=== PATIENT | male | born 1975 | race Caucasian/White ===

== ENCOUNTER → 2016-06-16 | Outpatient (CLI) | payer OTHER ==
[~2016-06-16] MED LIST: ALPR-411 PO; DICL75TA2 PO; HYDR-389 PO; LISI-725 PO; VENL150C56 PO; VENL1CAP92 PO
--- NOTE | 2016-06-16 15:16 | DIAGNOSTIC IMAGING REPORT ---
MRI LUMBAR SPINE W/O CONTRAST CLINICAL HISTORY: Back pain with right leg radiculopathy. TECHNIQUE: Sagittal and axial T1, T2 and STIR images were obtained. COMPARISON STUDY: No previous studies for comparison. OBSERVATIONS: The vertebral bodies and posterior elements appear intact. There is no abnormal bony signal present to suggest a marrow replacement process. L1-2: No disc protrusions or extrusions. No evidence of spinal canal or neural foraminal compromise. L2-3: No disc protrusions or extrusions. No evidence of spinal canal or neural foraminal compromise. L3-4: No disc protrusions or extrusions. No evidence of spinal canal or neural foraminal compromise. L4-5: There is a large right-sided disc extrusion measuring 20 x 20 x 10 mm. The disc material likely impinges on the right S1 nerve root. L5-S1: There is an annular fissure and small right posterior lateral disc protrusion. There is minimal deformity of the thecal sac. There is no significant foraminal narrowing. The conus medullaris and cauda equina appear normal. IMPRESSION: Large right-sided extruded disc herniation at the L4-5 level with secondary deformity of the thecal sac and probable impingement of the right S1 nerve root Electronically signed by: Perfecto Guzmán M.D. 06/16/2016 3:15 PM Dictated Date/Time: 06/16/2016 3:11 PM
== END | disposition home or self-care (01) ==
LOC: C.MRIBC 14:35
PROVIDERS: ATTEND Orthopaedic Surgery
DX: M51.26 Other intervertebral disc displacement, lumbar region (principal); M51.86 Other intervertebral disc disorders, lumbar region; M79.606 Pain in leg, unspecified

== ENCOUNTER → 2016-06-29 | Outpatient (CLI) | payer OTHER ==
[2016-06-29 14:42] LABS: BASO % 0.4 %; BASO ABS # 0.02 K/uL (0-0.2); COMPLETE YES; EOS % 1.4 %; HEMATOCRIT 49.9 % (42-52); IG% 0.4 %; LYMPH % 38.3 %; LYMPH ABS # 2.12 K/uL (1.2-3.4); MEAN CORPUSCULAR HEMOGLOBIN 29.8 pg (25-34); MEAN CORPUSCULAR HGB CONC 33.9 g/dl (32-36); MEAN PLATELET VOLUME 9.7 fL (7.4-10.4); MONO % 7.2 %; NEUT % 52.3 %; PLATELET COUNT 268 K/uL (130-400); RED BLOOD COUNT 5.67 M/uL (4.7-6.1); WHITE BLOOD COUNT 5.54 K/uL (4.8-10.8)
== END | disposition home or self-care (01) ==
LOC: C.LABBC 10:34
PROVIDERS: ATTEND Orthopaedic Surgery Orthopaedic Surgery of the Spine
DX: Z01.818 Encounter for other preprocedural examination (principal)

== ENCOUNTER → 2016-07-03 | Outpatient (CLI) | payer OTHER ==
[2016-07-03 19:36] LABS: BLOOD UREA NITROGEN 17 mg/dl (7-18); CALCIUM 8.8 mg/dl (8.5-10.1); CARBON DIOXIDE 26 mmol/L (21-32); CHLORIDE 106 mmol/L (98-107); GLUCOSE 89 mg/dl (70-99); POTASSIUM 4.1 mmol/L (3.5-5.1); SODIUM 140 mmol/L (136-145)
== END | disposition home or self-care (01) ==
LOC: C.LAB 18:27
PROVIDERS: ATTEND Physician Assistant Medical
DX: Z01.812 Encounter for preprocedural laboratory examination (principal)

== ENCOUNTER 2016-07-17 11:06 | Observation (INO) | payer OTHER ==
[2016-07-03 09:49] VITALS: BMI 29.0
--- NOTE | 2016-07-14 15:19 | HISTORY & PHYSICAL EXAMINATION ---
DATE OF ADMISSION: 07/17/2016 SUBJECTIVE CHIEF COMPLAINT: He presents with low back pain with right leg pain, numbness, weakness. HISTORY OF PRESENT ILLNESS: Eric is a very pleasant 41-year-old male who complains of the above symptoms. 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 He says he has had low back pain, some right leg difficulty with numbness and tingling and some weakness for many years. It is gradually getting worse over the past couple months to the point where he feels unstable on that leg. He was previously followed by Dr. Lund recently who had x-rays and subsequent MRI for this symptomatology. He had him on a short course of prednisone which helped a little bit but the pain did return after he was done. He still continues to have weakness and numbness and tingling. He did have an MRI which showed a fairly large disc herniation at L4-5. PAST MEDICAL HISTORY: Includes depression, hypertension. PAST SURGICAL HISTORY: Had lump removed from a fall on his hip. ALLERGIES: HE HAS NO ALLERGIES TO MEDICATIONS. CURRENT MEDICATIONS: List includes lisinopril. FAMILY MEDICAL HISTORY: Negative for heart disease, stroke, diabetes, blood clots, DVTs and cancer. SOCIAL HISTORY: He is . Drinks 3 more drinks a day. No tobacco use. Very active lifestyle. REVIEW OF SYSTEMS: Negative for any chest pain, shortness of breath. RESPIRATORY: Negative for any asthma or wheezing. MUSCULOSKELETAL: Negative for any joint pain, stiffness, weakness. PHYSICAL EXAMINATION: CONSTITUTIONAL: Alert and oriented x3. VITAL SIGNS: 6 foot 2, 225 pounds. CARDIOVASCULAR: Brisk capillary refill in distal extremities. Normal S1, S2. No S3 noted upon auscultation. RESPIRATORY: Equal and bilateral breath sounds. No rales, rhonchi or wheezing. GASTROINTESTINAL: Abdomen is nontender and soft. No organomegaly was palpated. MUSCULOSKELETAL EXAMINATION: He ambulated without difficulty and without the use of a cane or walker. He does have tension signs with straight leg raises on the left contralaterally. He has ipsilateral tension pain with straight leg raises on the right side. He has appropriate reflexes in patellar and Achilles. He is a little bit weaker with quadriceps as well as plantarflexion on the right side compared to left. No x-rays reviewed today; however MRI does show significant herniated disc at the L4-5 level. It does drop inferiorly. It does mainly affect the exiting L5 nerve root to the right side. We did review plain films, does show degenerative changes at L4-5. No gross instability was noted. ASSESSMENT DIAGNOSIS: Massive disc herniation at the L4-5 level impinging on the exiting 5th nerve root. PLAN: At this time, we offered him surgery for discectomy at L4-5 level. We discussed the surgery, recover time and risks as well. We did provide him with a back brace for postop as well as postop pain medication as well. We will assess him intraoperatively. We may possibly use Gl[employer] technology and instrument him at L4-5 if we deem that he is unstable after the discectomy. That decision will be made during surgery. We expect that he will be in on [facility] for 1 day, possibly 2. We will follow him up 10-14 days postop for suture removal and evaluation. He understands all the risks and benefits involved. CHERRI
[~2016-07-17] VITALS: Ht 188 cm; Wt 102.3 kg
[2016-07-17] VITALS (8 sets, daily range): BP systolic 118–150; BP diastolic 72–86; PULSE 78–89; TEMP 36.1–36.9; O2SAT 95–99; Ht 188 cm; Wt 102.3 kg
[~2016-07-17 11:06] MED LIST changes: +LACTATED RINGER'S 1000ML 1,000 ML IV SCH; +NSS 1000ML IV SCH; -VENL150C56 PO; -VENL1CAP92 PO
[2016-07-17] MEDS ORDERED: VENL150C56 PO (11:30)
[2016-07-17] MEDS ORDERED: VENL1CAP92 PO (11:47)
[2016-07-17] MEDS ORDERED: MIDAZOLAM HCL 1 MG/ML 2ML VIAL ONE (12:08)
[2016-07-17] MEDS ORDERED: ONDANSETRON INJ 2 MG/ML 2 ML VIAL ONE (12:08)
[2016-07-17] MEDS ORDERED: DEXAMETHASONE SOD INJ 4 MG/ML VIAL ONE ×3 (12:08→14:43)
[2016-07-17] MEDS ORDERED: GLYCOPYRROLATE INJ 0.2 MG/ML VIAL ONE ×2 (12:08→14:37)
[2016-07-17] MEDS ORDERED: NEOSTIGMINE METHYLSULFATE 5 MG/5 ML SYR ONE ×2 (12:08→14:37)
[2016-07-17] MEDS ORDERED: PROPOFOL IV EMULSION 10 MG/ML 20 ML VIAL IV ONE (12:08)
[2016-07-17] MEDS ORDERED: LIDOCAINE HCL 2% 2 ML VIAL (20MG/ML) ONE (12:08)
[2016-07-17] MEDS ORDERED: ROCURONIUM BROMIDE 10 MG/ML 5 ML VIAL ONE ×2 (12:08→14:37)
[2016-07-17] MEDS ORDERED: FENTANYL CITRATE INJ 50 MCG/1 ML 2 ML VIAL ONE ×2 (12:08)
[2016-07-17] MEDS: CEFAZOLIN 2000 MG/60 ML D5W 60 ML IV SCH ×2 (12:49→13:49)
[2016-07-17] MEDS ORDERED: GELATIN SPONGE SZ 100 ONE (13:28)
[2016-07-17] MEDS ORDERED: BACITRACIN 50000 UNIT VIAL ONE (13:29)
[2016-07-17] MEDS ORDERED: BUPIVACAINE/EPINEPHRINE 0.5% MPF 1:200,000 30 ML VIAL ONE (13:29)
[2016-07-17] MEDS ORDERED: THROMBIN FOR SOLN 20000 UNIT KIT ONE (13:29)
[2016-07-17] MEDS ORDERED: VANCOMYCIN HCL 1000MG/20ML VIAL ONE (13:29)
--- NOTE | 2016-07-17 13:43 | History & Physical Bridge Note ---
H&P Re-Evaluation Bridge Note: I have examined the patient, reviewed the History & Physical and in the interval since the performance of the History & Physical I have noted the following changes of clinical significance: No changes noted
[2016-07-17] MEDS ORDERED: MoRPHine SULFATE 2 MG/ML CARP ONE (14:25)
[2016-07-17] MEDS ORDERED: EpHEDrine SULFATE 50MG/5ML SYR ONE (14:29)
[2016-07-17] MEDS ORDERED: HYDROmorphone INJ 2 MG/ML SYR/VIAL ONE (14:34)
[2016-07-17] MEDS ORDERED: NALOXONE HCL 0.4 MG/1 ML VIAL/CARP IV PRN (15:30)
[2016-07-17] MEDS ORDERED: ONDANSETRON INJ 2 MG/ML 2 ML VIAL IV PRN ×2 (15:30→15:45)
[2016-07-17] MEDS ORDERED: EpHEDrine SULFATE INJ 50 MG/ML AMP IV PRN (15:30)
[2016-07-17] MEDS ORDERED: ATROPINE SULFATE 0.1 MG/ML 5ML SYR IV PRN (15:30)
[2016-07-17] MEDS ORDERED: FLUMAZENIL 0.1 MG/1 ML 10 ML VIAL IV PRN (15:30)
[2016-07-17] MEDS ORDERED: PROMETHAZINE HCL INJ 12.5 MG in SODIUM CHLORIDE 0.9% 50ML 50 ML IV PRN ×2 (15:30→15:45)
[2016-07-17] MEDS ORDERED: LABETALOL HCL IV 5 MG/ML 20ML IV PRN (15:30)
[2016-07-17] MEDS ORDERED: HYDROmorphone INJ 1 MG/ML SYR IV PRN ×2 (15:30→15:45)
--- NOTE | 2016-07-17 15:38 | [facility] Post Operative Brief Note ---
Immediate Operative Summary Operative Date Jul 17, 2016. Pre-Operative Diagnosis Massive Disc Herniation L4-L5 Post-Operative Diagnosis Massive Disc Herniation L4-L5 Procedure(s) Performed L4-[address] Andino Ad Clerk Surgeon(s) FELICIA Pierce Estimated Blood Loss 80ml Findings disc herniation Specimens none per surgeon Complication(s) None Disposition Recovery Room / PACU
[2016-07-17] MEDS ORDERED: HYDROmorphone INJ 2 MG/ML SYR/VIAL IV PRN (15:45)
[2016-07-17] MEDS ORDERED: ALPRAZOLAM 0.5 MG TAB PO PRN (15:45)
[2016-07-17] MEDS ORDERED: ACETAMINOPHEN 325 MG TAB PO PRN (15:45)
[2016-07-17] MEDS ORDERED: OXYCODONE/ACETAMINOPHEN 5-325 TAB PO PRN ×2 (15:45)
[2016-07-17] MEDS ORDERED: TRAMADOL HCL 50 MG TAB PO PRN (15:45)
[2016-07-17] MEDS ORDERED: LORAZEPAM 1 MG TAB PO PRN (15:45)
[2016-07-17] MEDS ORDERED: METOCLOPRAMIDE HCL INJ 5 MG/ML 2 ML VIAL IV PRN (15:45)
[2016-07-17] MEDS ORDERED: LORAZEPAM INJ 1 MG in SYRINGE 0 ML IV PRN (15:45)
[2016-07-17] MEDS ORDERED: MAGNESIUM HYDROXIDE SUSP 30 ML UDC PO PRN (15:45)
[2016-07-17] MEDS ORDERED: IV FLUIDS COMPLETED PRN (16:30)
--- NOTE | 2016-07-17 16:42 | Anesthesiology Progress Note ---
Anesthesia Post Op Note Date & Time Jul 17, 2016 at 16:42 Vital Signs Pain Intensity: 0 Vital Signs Past 12 Hours Date Time Temp Pulse Resp B/P Pulse Ox O2 Delivery O2 Flow Rate FiO2 07/17/16 16:15 36.2 83 16 136/72 98 Nasal Cannula 4 07/17/16 16:05 36.2 95 16 162/80 98 Nasal Cannula 4 07/17/16 15:55 90 16 151/81 100 Mask 10 07/17/16 15:45 96 16 151/84 100 Mask 10 07/17/16 15:35 36.6 101 16 158/84 100 Mask 10 07/17/16 11:37 36.9 83 16 146/86 99 Room Air 07/17/16 11:33 36.9 83 16 146/86 99 Room Air Notes Mental Status: alert / awake / arousable, participated in evaluation Pt Amnestic to Procedure: Yes Nausea / Vomiting: adequately controlled Pain: adequately controlled Airway Patency, RR, SpO2: stable & adequate BP & HR: stable & adequate Hydration State: stable & adequate Anesthetic Complications: no major complications apparent
[2016-07-17] MEDS: SODIUM CHLORIDE 0.9% 1000ML 1,000 ML IV SCH (17:29)
[2016-07-17] MEDS: KETOROLAC TROMETHAMINE 30 MG/ML VIAL IV. SCH ×2 (17:30→23:20)
--- NOTE | 2016-07-17 19:19 | OPERATIVE REPORT ---
DATE OF OPERATION: 07/17/2016 PREOPERATIVE DIAGNOSIS: Disc herniation L4-5. POSTOPERATIVE DIAGNOSIS: Same. PROCEDURE: Discectomy L4-5, partial laminotomy L4-5, lumbar spine L4-5. SURGEON: Dr. Andino. WIRE RIGGER: Juan Cruz PA-C. COMPLICATIONS: Zero. BLOOD LOSS: 50 mL. ANESTHETIC: General. DESCRIPTION OF PROCEDURE: The patient was taken to the operating room, a general intubated anesthetic provided to the patient, placed prone, shaved, scrubbed, prepped and draped sterile. We made a skin incision roughly from L4 to the sacrum dissecting the soft tissue. We brought in x-ray. We could come right down in the L4-5 interspace. He had real large disc herniation that had dissected in the inferior direction several centimeters. We did upbiting laminotomy of L4 and down-biting laminotomy of L5 on the right hand side only, foraminotomy, partial facetectomy. We preserved all structural integrity. We then were final able to get out lateral to the nerve root itself, retract this in a medial direction in piecemeal fashion and take out a large disc herniation actually 3 fairly significant fragments. We actually made incision in the L4-5 disc. There was not much yield here. We then irrigated thoroughly, closed over some vancomycin powder over Hemovac drain over some Gelfoam. We closed fascia to fascia with #1 Vicryl suture, 2-0 in the subcuticular layer, 3-0 nylon on the skin, sterile dressing applied. The patient returned to PACU in improved stable condition. No apparent complications. Sponge and needle count correct at the close. I attest to the content of the Intraoperative Record and any orders documented therein. Any exceptio ns are noted below.
[2016-07-17] MEDS: DEXAMETHASONE INJ 10 MG in SYRINGE 0 ML IV SCH (22:06)
[2016-07-17] MEDS: CEFAZOLIN IV 1,000 MG in DEXTROSE 5% 50ML 50 ML IV SCH (22:06)
[2016-07-18 03:50] VITALS: BP 118/65; PULSE 87; TEMP 36.8; O2SAT 96
[2016-07-18] MEDS: SODIUM CHLORIDE 0.9% 1000ML 1,000 ML IV SCH (04:04)
[2016-07-18] MEDS: DEXAMETHASONE INJ 10 MG in SYRINGE 0 ML IV SCH ×2 (05:47→14:29)
[2016-07-18] MEDS: CEFAZOLIN IV 1,000 MG in DEXTROSE 5% 50ML 50 ML IV SCH ×2 (05:47→14:28)
[2016-07-18] MEDS: KETOROLAC TROMETHAMINE 30 MG/ML VIAL IV. SCH ×2 (05:48→12:25)
[2016-07-18] MEDS ORDERED: BISACODYL 10 MG SUPP PR PRN (06:00)
[2016-07-18] MEDS ORDERED: BISACODYL 5 MG TABEC PO PRN (06:00)
[2016-07-18] MEDS ORDERED: NURSING VERBAL MED ORDER ONE (06:30)
[2016-07-18 07:20] VITALS: BP 127/75; PULSE 80; TEMP 36.6; O2SAT 96
[2016-07-18] MEDS ORDERED: VENLAFAXINE HCL XR 37.5 MG CAPXR PO SCH (09:00)
[2016-07-18] MEDS ORDERED: LISINOPRIL 20 MG TAB PO SCH (09:00)
[2016-07-18] MEDS ORDERED: POLYETHYLENE (MIRALAX) 17 GM PACK PO SCH (09:00)
--- NOTE | 2016-07-18 09:32 | Discharge Instructions ---
Discharge Instructions Date of Service Jul 18, 2016. Admission Reason for Admission: L4-L5 Disc Herniation Discharge Discharge Diagnosis / Problem: disc herniation Discharge Goals Goal(s): Improve function Activity Recommendations Activity Limitations: as noted below Lifting Limitations: until after follow-up appointment Exercise/Sports Limitations: until after follow-up appointment May Resume Sexual Activity: after follow-up appointment Shower/Bathe: keep incision dry . Current Hospital Diet Patient's current hospital diet: Regular Diet Discharge Diet Recommended Diet: Regular Diet Procedures Procedures Performed: L4-5 Laminectomy Pending Studies Studies pending at discharge: no Medical Emergencies . Who to Call and When: Medical Emergencies: If at any time you feel your situation is an emergency, please call 911 immediately. . Non-Emergent Contact Non-Emergency issues call your: Surgeon Call Non-Emergent contact if: your pain is unusual for you, your pain is concerning you, you have any medication questions . "Provider Documentation" section prepared by Chuck Andino. VTE Core Measure Inpt VTE Proph given/why not?: Treatment not indicated
--- NOTE | 2016-07-18 09:34 | Discharge Instructions ---
Discharge Instructions Date of Service Jul 18, 2016. Admission Reason for Admission: L4-L5 Disc Herniation Discharge Discharge Diagnosis / Problem: disc herniation Discharge Goals Goal(s): Improve function Activity Recommendations Activity Limitations: as noted below Lifting Limitations: until after follow-up appointment Exercise/Sports Limitations: until after follow-up appointment May Resume Sexual Activity: after follow-up appointment Shower/Bathe: keep incision dry . Instructions / Follow-Up Instructions / Follow-Up MEDICATIONS: Please take your prescriptions as instructed at your pre-op appointment. SPECIAL CARE: The following information is intended to answer some of the common questions and concerns regarding your surgery. Each patient is an individual and receives individual counselling throughout the course of treatment, from diagnosis to surgery all the way through recovery. What follows is not an exhaustive list, but should be a useful guide to some of the common questions and concerns patients have regarding their surgeries. These are not provided to keep you from calling us; rather, they give you something accurate and concrete to reference as you recover from your procedure. If you need us, we are available to you. As always, if you are not sure about something, call us at [phone]. MEDICAL EMERGENCIES: For these conditions, call 911 or go to your local hospital-based Emergency Department - not [facility] or equivalent. * Paralysis * Severe chest pain or difficulty breathing * Swelling or redness of either leg Spine procedures can be rather complex and though complications are rare, they do occur. In such cases, effective advice regarding emergency situations cannot always be addressed over the telephone. You may be referred to the emergency department for more effective management of your problem. Activity Limitations: It is important to give your body time to heal, so please limit your activities : * In general, don't do anything that moves your spine too much. You should avoid contact sports, twisting or heavy lifting while you recover. * 5-10 pounds is all you should attempt to lift. * You should not plan on driving for approximately 3 weeks and you should avoid traveling more than 30-45 minutes at a time. Longer trips should be broken down with walking breaks spaced appropriately. * Physical therapy is not usually required. * Walking and good posture practices will help you recover and regain your function. * Avoid straining or sudden changes in position. * In general, the goal is to take it easy and recover. Don't cause any new problems. Just relax. Showers: * Do not take a bath, use a Jacuzzi or hot tub or otherwise submerge your incision. * It is usually safe to take a shower 4-5 days after your surgery. * Your incision does not require any special creams or ointments. * Simply clean it with soap and water, dry and re-dress with a clean bandage afterwards. Incision: * Keep incision clean, dry and protected until your first follow-up appointment. * Some amount of drainage and redness is normal. Any drainage should be fairly clear and not have a foul odor. * If you feel anything is wrong or you have excessive drainage, please call us. * Your stitches and ronna will be removed 10-14 days after your surgery. At the time of your first post-op visit. * Neck surgeries are typically closed with a suture underneath the skin. The steri-strips over the incision should be maintained until we see you in the office. Bracing: * You may be provided with a back or neck brace to encourage good posture and prevent injury. It will remind you not to do too much as you heal and will alert others to the fact that you have had a surgery. * Back braces may be removed for showers and when you are resting at home. They must be worn when you are walking around for any period of time or for travel. * For neck surgery, you will likely be provided with two cervical collars. The soft collar (Bassett or foam rubber) is worn most commonly throughout the day and while sleeping. The plastic collar (provided at the hospital) is for showering/bathing. * Except while eating, collars should remain in place. More specifically, bracing is provided for a purpose and should be worn. * Please obtain your brace or collars prior to your operation and bring them to the hospital with you on the day of surgery. * You should also bring your collars to your post-op appointment with Dr. Andino. You should always take good care of your body and practice healthy habits, especially following surgery. You should: * Follow your doctor's treatment plan * Sit and stand properly with good posture (ears over shoulders, shoulders over hips) Don't slouch * Learn to lift correctly * Exercise regularly (low-impact aerobic exercise is especially good, but check with your doctor first) * Generally, be up and walking for 5-10 minutes at a time at least 3-4 times per day from the day you get home * Increasing walking to tolerance until you can walk for 20-30 minutes at a time * Attain and maintain a healthy body weight * Eat healthy foods ( a well-balanced, low-fat diet rich in fruits and vegetables) and get enough calcium * Avoid excessive use of alcohol When to call our office - If you notice any of the following: * Increased pain not relieve by pain medicine * Fevers greater then 100 degrees F, chills or flu symptoms * Increased redness around incision * Drainage from the incision that is not clear * Any foul smelling drainage * Swelling or fluid collection beneath the skin Miscellaneous: * In the hospital, you may be given a walker or cane for support while walking. These are temporary needs and are intended to prevent injuries due to falls. You may discontinue them when you feel strong and steady enough on your feet. * Sleep in a comfortable position. We find that many patients find a lounge chair or recliner with several pillows to be beneficial in the early post-operative period. * The support stockings should be used for 7-10 days and may be discontinued when you are back to walking more and conducting usual household activities. No problem is insignificant. We are here to help you and get you well. Contact us at [phone]. Definitions: Foraminotomy: If part of the disc or a bone spur (osteophyte) is pressing on a nerve as it leaves the vertebra (through an exit called the foramen), a foraminotomy may be done. Otomy means "to make an opening." A foraminotomy is making the opening of the foramen larger, so the nerve can exit without being compressed. Laminotomy: Similar to the foraminotomy, a laminotomy makes a larger opening, this time in your bony plate protecting your spinal canal and spinal cord (the lamina). The lamina may be pressing on your nerve, so the surgeon may make more room for the nerves using a laminotomy. Laminectomy: Sometimes, a laminotomy is not sufficient. The surgeon may need to remove all or part of the lamina. This procedure is called a laminectomy. This can often be done at many levels without any harmful effects. Current Hospital Diet Patient's current hospital diet: Regular Diet Discharge Diet Recommended Diet: Regular Diet Procedures Procedures Performed: L4-5 Laminectomy Pending Studies Studies pending at discharge: no Medical Emergencies . Who to Call and When: Medical Emergencies: If at any time you feel your situation is an emergency, please call 911 immediately. . Non-Emergent Contact Non-Emergency issues call your: Surgeon Call Non-Emergent contact if: your pain is not controlled . "Provider Documentation" section prepared by Chuck Andino. VTE Core Measure Inpt VTE Proph given/why not?: Treatment not indicated
[2016-07-18 09:39] VITALS: BP 144/78; PULSE 88; O2SAT 95
--- NOTE | 2016-07-18 10:53 | DISCHARGE SUMMARY ---
SUBJECTIVE: Minimal complaints of pain. Alert, oriented. Vital signs stable, 118/65 blood pressure, 36.6 temperature. ASSESSMENT: Status post lumbar spine discectomy, improved stable, short run. DISPOSITION: Dressing changed today. Discharge home later today. Instructions and precautions provided. Prescriptions on his chart. Back brace provided and we will see him back in the office in 10 days.
[2016-07-18 12:29] VITALS: BP 121/71; PULSE 80; TEMP 36.6; O2SAT 95
[2016-07-18 15:06] VITALS: BP 121/71; PULSE 80; TEMP 36.6; O2SAT 95
[2016-07-18 15:56] VITALS: BP 107/64; PULSE 85; TEMP 36.5; O2SAT 96
--- NOTE | 2016-07-19 07:54 | DIAGNOSTIC IMAGING REPORT ---
INTRAOPERATIVE RADIOGRAPH CLINICAL HISTORY: L4-L5 discectomy. Fluoroscopy time: 1 second. FINDINGS: A single spot fluoroscopic view of the lower lumbar spine is presented. A surgical probe projects posteriorly at the level of L5. IMPRESSION: Intraoperative image from L4 -L5 discectomy as above. Electronically signed by: Gorge Martines M.D. 07/19/2016 7:52 AM Dictated Date/Time: 07/19/2016 7:52 AM
== END 2016-07-18 16:15 | disposition home or self-care (01) ==
LOC: ENRESERVTM → ENRESERVDT → C.ACU 11:06 → C.3E 15:39
PROVIDERS: ADMIT Orthopaedic Surgery Orthopaedic Surgery of the Spine; ATTEND Orthopaedic Surgery Orthopaedic Surgery of the Spine
DX: M51.26 Other intervertebral disc displacement, lumbar region (principal); I10 Essential (primary) hypertension

== ENCOUNTER 2022-02-21 14:29 | Inpatient (IN) ==
[2022-02-21] MEDS ORDERED: AMIODARONE HCL INJ 50 MG/ML 3 ML VIAL IV ONE (14:32)
[2022-02-21] MEDS ORDERED: AMIODARONE 150MG / 100ML D5W IV ONE (14:35)
[2022-02-21] MEDS ORDERED: AMIODARONE / D5W 150 MG/100 ML BAG IV STA (14:41)
[2022-02-21] MEDS ORDERED: 0.2 MICRON FILTER SET 1 EACH IV ONE (14:45)
--- NOTE | 2022-02-21 14:47 | Emergency Department Note ---
Impression & Plan PSVT (paroxysmal supraventricular tachycardia), Tachyarrhythmia, Chest pain ED Provider Note NAME: SELVIN VINCENT AGE: 47 SEX: M : 1975 ARRIVES VIA: Walk-In INFORMANT: Patient, EMS ED PROVIDER(S): Dominik Sun DO CHIEF COMPLAINT: Palpitations and chest pain HPI: The patient is a 47-year-old male who presented to the emergency department by ambulance for an evaluation of chest pain. The patient started having chest pain prior to arrival. The patient noticed discomfort around noon. He called 911. He arrived via ALS. He was noted to have a dysrhythmia with significant tachycardia. This was felt to be narrow complex tachycardia and the patient was initially treated with adenosine. The patient did not respond to this modality and he arrived to the emergency department in wide-complex tachycardia. I disc ussed the patient's initial EKG with him. This was felt to be ventricular tachycardia however there was some signs on his previous EKG that could be consistent with aberrant conduction. For this reason his case was discussed with cardiology. The patient denies having any shortness of breath. He denies having any swelling in the legs. He denies having any recent traveling. He said no recent trauma. He states he had an EKG in the past for what he describes as anxiety. He states that this feels differently. ROS: See above HPI for pertinent positives & negatives. A total of 10 systems reviewed and were otherwise negative. PAST MEDICAL HISTORY: See Below PAST SURGICAL HISTORY: See Below FAMILY HISTORY: See Below SOCIAL HISTORY: See Below HOME MEDICATIONS: See Below ALLERGIES: See Below VITALS: See Below PHYSICAL EXAMINATION: GENERAL: Patient is awake alert in no acute distress patient is resting comfortably and showing no signs of anxiety EYES: The conjunctivae are clear. The pupils are round and reactive. EARS, NOSE, MOUTH AND THROAT: The nose is without any evidence of any deformity. Mucous membranes are moist. Tongue is midline. NECK: The neck is nontender and supple. RESPIRATORY: Normal respiratory effort is noted there is no evidence of wheezing rhonchi or rales CARDIOVASCULAR: Tachycardic and regular heart sounds were noted auscultation. There is no definite murmur. GASTROINTESTINAL: The abdomen is soft. Abdomen is nontender. MUSCULOSKELETAL/EXTREMITIES: There is no evidence of gross deformity full range of motion is noted in the hips and shoulders. SKIN: There is no obvious evidence of any rash. There are no petechiae, pallor o r cyanosis noted. NEUROLOGIC: Patient is awake alert and oriented x3. MEDICAL DECISION MAKING: The patient is a 47-year-old male who presented to the emergency department by ambulance. The patient started having chest pain and palpitations. He was found to have a wide-complex tachycardia prior to arrival. The QRS duration was wide enough to be consistent with a wide-complex tachycardia however the initial appearance of the EKG be consistent with SVT or another dysrhythmia. The patient was treated with IV fluids as well as IV adenosine by the prehospital personnel. There was no change in his rhythm. He arrived at the emergency department and received further IV hydration. I attempted a modified Valsalva maneuver. I reviewed the patient's previous EKG which did appear to have a slightly shortened IN interval. There was some concern that this could be related to the patient's current tacky dysrhythmia. This reason I consulted cardiology. They reviewed the patient's EKG as well as his clinical condition. They presented to the bedside. We reviewed the patient's condition with him. He was treated with further antidysrhythmic's including beta-blockers. Ultimately it was felt safest to offer the patient cardioversion. The patient was cardioverted in the emergency department emergently. He tolerated this very well. The patient was cardioverted to sinus rhythm. I discussed the patient's condition with the on-call [facility] hospitalist as well. Triage Nursing notes reviewed. Prior medical records reviewed Vital Signs: reviewed and remarkable for no significant abnormalities Differential diagnosis: Cardiac ischemia, aortic dissection, pulmonary embolism, pneumothorax, pneumonia, pericarditis, myocarditis, esophageal rupture, GERD, cholecystitis, pancreatitis, musculoskeletal, as well as other pathologies. ER treatment provided: See below Diagnostics interpreted by me: ECG: EKG was obtained in the emergency department. My interpretation is wide- complex tachycardia at 248 bpm. No PVCs were noted. Nonspecific ST segment abnormalities were noted. This was compared to a tracing from February 28, 2010. Sinus rhythm was noted on the previous tracing and has been replaced with a wide-complex tachycardia. A second EKG was obtained in the emergency department. This appears to be consistent with wide-complex tachycardia at 232 bpm. No PVCs were noted. This represents no change from the earlier tracing. A prehospital EKG was evaluated. My interpretation is wide-complex tachycardia at 252 bpm. Wandering baseline was noted. Nonspecific ST segment depressions were noted in the inferior and lateral leads. Third EKG was obtained in the emergency department. My interpretation is sinus rhythm at 80 bpm. Fusion beats were noted. Nonspecific ST segment abnormalities were noted. This was compared to a tracing from February 28, 2010. No significant changes were noted. Cardiac Monitoring: An order was placed for continuous cardiac monitoring. The monitor shows a rate of 70 bpm with sinus rhythm. Laboratory studies: As stated above and show below. Imaging studies: See below Consultation(s): I discussed this case with Dr. Sanchez who is on for [facility] cardiology. I discussed this case with Dr. Baum who is on-call for the [facility] hospitalist group. ED COURSE: Procedures: Procedural Sedation Indication wide-complex tachycardia. Total time: 15minutes. Written consent was obtained after the risks and benefits were explained to the patient, including, but not limited to aspiration, allergic reaction, breathing difficulties, cardiac complications, vomiting, pain, event recall, bleeding, a nd/or infection. Pre-sedation examination and paperwork completed. The patient was on 100% oxygen via NRB prior to the procedure. Continous end tidal CO2 monitoring, pulse oximetry, and cardiac monitoring were utilized. Suction, airway equipment, medications, respiratory equipment, and appropriate personnel were prepared prior to the initiation of the procedure. A time out was taken. Sedation was achieved utilizing 14mg of etomidate. After I observed the patient had reached the appropriate level of sedation the main procedure was performed without complication. Sedation was discontinued and the monitoring continued. The patient recovered quickly from the effects of the medication without complication or adverse event. Critical Care: I have personally spent greater than 55 minutes of critical care time in the direct management of this patient. This includes bedside care, interpretation of diagnostic studies, and testing, discussion with consultants, patient, and family members, and other required patient management activities. This 55 minutes is in excess of all separately billable procedures. Past Med/Surg History Medical History Anxiety Hypertension Lumbar disc herniation with radiculopathy Surgical History Status post lumbar spine surgery for decompression of spinal cord Social History Smoking Status: Never smoker Hx Alcohol Use: No Hx Substance Use: No Communication Ability: Effective Route Sales Representative Required: No Beliefs That Will Affect Care: None Current Living Situation: Family Feels Safe at Home: Yes Assistive Devices: None Allergies Allergies Allergy/AdvReac Type Severity Reaction Status Date / Time No Known Drug Allergies Allergy Unknown . Verified 02/21/22 15:51 Home Meds Home Medications Medication Instructions Recorded Confirmed cholecalciferol (vitamin D3) 50 50 mcg PO DAILY 02/21/22 02/21/22 mcg (2,000 unit) tablet (Vitamin D3) lisinopril 20 mg tablet 20 mg PO DAILY 02/21/22 02/21/22 venlafaxine 25 mg tablet 6.25 mg PO DAILY 02/21/22 02/21/22 Results & Data (ED) Vital Signs Vital Signs - 24 hr 02/21/22 14:32 02/21/22 14:47 02/21/22 14:55 Temperature 36.8 C Temperature Source Oral Pulse Rate 242 H Pulse Rate [Left] 238 H 230 H Pulse Rate from SpO2 Sensor Pulse Rhythm Regular Pulse Rhythm [Left] Regular Pulse Strength Normal Pulse Strength [Left] Normal Respiratory Rate 17 17 19 Respiratory Effort / Characteristics Non-Labored Non-Labored Respiratory Depth Normal Normal Normal Respiratory Pattern Regular Regular Regular Blood Pressure 116/78 Blood Pressure [Left Arm] 120/90 130/86 Blood Pressure Mean 90 Blood Pressure Mean [Left Arm] 100 100 Blood Pressure Position Lying Blood Pressure Position [Left Arm] Lying Lying Pulse Oximetry 98 98 98 Oxygen Delivery Method Room Air Room Air Room Air Oxygen Flow Rate Sepsis Recent Fever Within 48 Hours No Sepsis New/Unexplained Change in Mental Status N/A Sepsis Action Taken by Nursing No Action Required End-Tidal CO2 02/21/22 14:56 02/21/22 14:34 02/21/22 14:40 Temperature Temperature Source Pulse Rate 230 H 259 H 243 H Pulse Rate [Left] Pulse Rate from SpO2 Sensor Pulse Rhythm Pulse Rhythm [Left] Pulse Strength Pulse Strength [Left] Respiratory Rate 17 27 H Respiratory Effort / Characteristics Respiratory Depth Respiratory Pattern Blood Pressure 130/86 Blood Pressure [Left Arm] Blood Pressure Mean Blood Pressure Mean [Left Arm] Blood Pressure Position Blood Pressure Position [Left Arm] Pulse Oximetry Oxygen Delivery Method Oxygen Flow Rate Sepsis Recent Fever Within 48 Hours Sepsis New/Unexplained Change in Mental Status Sepsis Action Taken by Nursing End-Tidal CO2 02/21/22 14:50 02/21/22 15:00 02/21/22 15:10 Temperature Temperature Source Pulse Rate 237 H 218 H 219 H Pulse Rate [Left] Pulse Rate from SpO2 Sensor Pulse Rhythm Pulse Rhythm [Left] Pulse Strength Pulse Strength [Left] Respiratory Rate 12 13 12 Respiratory Effort / Characteristics Respiratory Depth Respiratory Pattern Blood Pressure 130/86 Blood Pressure [Left Arm] Blood Pressure Mean 100 Blood Pressure Mean [Left Arm] Blood Pressure Position Blood Pressure Position [Left Arm] Pulse Oximetry 98 96 94 Oxygen Delivery Method Room Air Room Air Room Air Oxygen Flow Rate Sepsis Recent Fever Within 48 Hours Sepsis New/Unexplained Change in Mental Status Sepsis Action Taken by Nursing End-Tidal CO2 20 02/21/22 15:12 02/21/22 15:13 02/21/22 15:15 Temperature Temperature Source Pulse Rate 82 77 83 Pulse Rate [Left] Pulse Rate from SpO2 Sensor 81 77 82 Pulse Rhythm Pulse Rhythm [Left] Pulse Strength Pulse Strength [Left] Respiratory Rate 16 17 20 Respiratory Effort / Characteristics Respiratory Depth Respiratory Pattern Blood Pressure 120/77 106/77 130/81 Blood Pressure [Left Arm] Blood Pressure Mean 91 86 97 Blood Pressure Mean [Left Arm] Blood Pressure Position Blood Pressure Position [Left Arm] Pulse Oximetry 92 94 97 Oxygen Delivery Method Nasal Cannula Nasal Cannula Nasal Cannula Oxygen Flow Rate 2 2 2 Sepsis Recent Fever Within 48 Hours Sepsis New/Unexplained Change in Mental Status Sepsis Action Taken by Nursing End-Tidal CO2 16 19 32 02/21/22 15:20 02/21/22 15:08 02/21/22 15:10 Temperature Temperature Source Pulse Rate 99 H 230 H 88 Pulse Rate [Left] Pulse Rate from SpO2 Sensor Pulse Rhythm Pulse Rhythm [Left] Pulse Strength Pulse Strength [Left] Respiratory Rate 17 17 Respiratory Effort / Characteristics Respiratory Depth Respiratory Pattern Blood Pressure 139/99 110/60 Blood Pressure [Left Arm] Blood Pressure Mean 112 76 Blood Pressure Mean [Left Arm] Blood Pressure Position Blood Pressure Position [Left Arm] Pulse Oximetry 100 100 Oxygen Delivery Method Room Air Nasal Cannula Oxygen Flow Rate 2 Sepsis Recent Fever Within 48 Hours Sepsis New/Unexplained Change in Mental Status Sepsis Action Taken by Nursing End-Tidal CO2 26 Home Medications Current Medication List: was personally reviewed by ma Laboratory Data Attestation: I reviewed the patient's lab results. Result diagrams: 02/22/22 05:51 02/22/22 05:51 Lab Results 02/21/22 02/21/22 02/21/22 Range/Units 14:31 14:31 14:31 WBC 9.40 (4.8-10.8) K/ul RBC 5.53 (4.63-6.08) M/uL Hgb 16.5 (14.0-18.0) g/dl Hct 48.4 (40.1-51.0) % MCV 87.5 (80.0-100.0) fL MCH 29.8 (25.0-34.0) pg MCHC 34.1 (32.0-36.0) g/dL RDW Std Deviation 38.8 (36.4-46.3) fL RDW Coeff of Zandra 12.1 (11.5-14.5) % Plt Count 304 (130-400) K/uL MPV 9.4 (9.4-12.4) fL Immature Gran % (Auto) 0.3 % Neut % (Auto) 74.4 % Lymph % (Auto) 20.2 % Shannon % (Auto) 4.7 % Eos % (Auto) 0.1 % Baso % (Auto) 0.3 % Neut # (Auto) 6.99 H (1.4-6.5) K/uL Lymph # (Auto) 1.90 (1.2-3.4) K/uL Shannon # (Auto) 0.44 (0.24-0.82) K/uL Eos # (Auto) 0.01 (0-0.50) K/uL Baso # (Auto) 0.03 (0-0.2) K/uL Immature Gran # (Auto) 0.03 H (0.00-0.02) K/uL PT 11.1 (9.0-12.0) Seconds INR 1.0 (0.9-1.1) APTT 28.8 (21.0-31.0) Seconds PTT Ratio 1.0 Sodium 139 (136-145) mmol/L Potassium 3.8 (3.5-5.1) mmol/L Chloride 104 (98-107) mmol/L Carbon Dioxide 25 (21-32) mmol/L Anion Gap 10 (3-11) BUN 12 (6-23) mg/dl Creatinine 1.31 (0.6-1.4) mg/dl Est Cr Clr Drug Dosing 92.0 ml/min Est GFR ( Amer) 75.1 ml/min Est GFR (Non-Af Amer) 64.8 ml/min BUN/Creatinine Ratio 9.2 L (10-20) Glucose 135 H (70-99(Fasting)) mg/dl Calcium 10.0 (8.5-10.1) mg/dl Total Bilirubin 1.8 H (0.2-1.0) mg/dl AST 26 (13-39) U/L ALT 61 H (7-52) U/L Alkaline Phosphatase 63 (34-104) U/L Troponin I High Sens 39.5 H (0-20) pg/ml Total Protein 7.3 (6.0-8.3) gm/dl Albumin 4.6 (3.4-5.0) gm/dl Globulin 2.7 (2.5-4.0) gm/dl Albumin/Globulin Ratio 1.7 (0.9-2) Lipase 13 (11-82) U/L Administered Medications Enoxaparin Sodium (Enoxaparin Inj 40 Mg/0.4 Ml Syr) 40 mg SQ Q24H MOHINI Stop: 03/24/22 08:59 Last Admin: 02/22/22 08:27 Dose: Not Given Documented By: WILLOW Lisinopril (Lisinopril 20 Mg Tab) 20 mg PO DAILY MOHINI Stop: 03/24/22 08:59 Last Admin: 02/22/22 08:28 Dose: 20 mg Documented By: WILLOW Miscellaneous (Order Awaiting Action [Venlafaxine 6.25mg]) 1 each N/A QS MOHINI Stop: 03/24/22 00:00 Last Admin: 02/22/22 08:27 Dose: Not Given Documented By: Admin: 02/22/22 07:39 Dose: Not Given Documented By: WILLOW Discontinued Medications Adenosine (Adenosine Iv Soln 3 Mg/Ml 2 Ml Vial) Confirm Administered Dose 12 mg IV .STK-MED ONE Stop: 02/21/22 14:51 Last Admin: 02/21/22 14:53 Dose: 12 mg Documented By: [place] Adenosine (Adenosine Iv Soln 3 Mg/Ml 2 Ml Vial) 12 mg IV ONE ONE Stop: 02/21/22 15:31 Last Admin: 02/21/22 15:35 Dose: Not Given Documented By: [place] Amiodarone HCl/Dextrose (Amiodarone 150mg / 100ml D5w) Confirm Administered Dose 150 mg IV .STK-MED ONE Stop: 02/21/22 14:36 Last Admin: 02/21/22 15:00 Dose: Not Given Documented By: [place] Etomidate (Etomidate 2 Mg/Ml 20 Ml Vial) Confirm Administered Dose 40 mg IV .STK-MED ONE Stop: 02/21/22 14:56 Last Admin: 02/21/22 15:36 Dose: Not Given Documented By: [place] Etomidate (Etomidate 2 Mg/Ml 20 Ml Vial) 14 mg IV ONE ONE Stop: 02/21/22 15:31 Last Admin: 02/21/22 15:35 Dose: 14 mg Documented By: [place] Fentanyl Citrate (Fentanyl Citrate 100 Mcg/2 Ml Vial) Confirm Administered Dose 100 mcg .ROUTE .STK-MED ONE Stop: 02/21/22 15:04 Last Admin: 02/21/22 15:34 Dose: Not Given Documented By: [place] Fentanyl Citrate (Fentanyl Citrate 100 Mcg/2 Ml Vial) 50 mcg IV ONE ONE Stop: 02/21/22 15:31 Last Admin: 02/21/22 15:09 Dose: 50 mcg Documented By: [place] Amiodarone HCl/Dextrose (Nexterone / D5w) 150 mg in 100 mls @ 600 mls/hr IV NOW STA Stop: 02/21/22 14:50 Last Admin: 02/21/22 15:00 Dose: Not Given Documented By: [place] Metoprolol Tartrate (Metoprolol Tartrate 1 Mg/Ml Vial) Confirm Administered Dose 5 mg IV .STK-MED ONE Stop: 02/21/22 14:56 Last Admin: 02/21/22 14:56 Dose: 5 mg Documented By: [place] Metoprolol Tartrate (Metoprolol Tartrate 1 Mg/Ml Vial) 5 mg IV ONE ONE Stop: 02/21/22 15:31 Last Admin: 02/21/22 15:37 Dose: Not Given Documented By: [place] Metoprolol Tartrate (Metoprolol Tartrate 25 Mg Tab) 25 mg PO NOW STA Stop: 02/21/22 16:06 Last Admin: 02/21/22 16:31 Dose: 25 mg Documented By: [place] Imaging Data Radiologist's Impression: Chest X-Ray 02/21/22 14:33 XR chest 1V portable CLINICAL HISTORY: Chest Pain TECHNIQUE: Single frontal radiograph of the chest was obtained. Comparison: None available at the time of this dictation. FINDINGS: No lines and tubes are seen. The cardiomediastinal silhouette is normal. The lungs are clear. No evidence of pleural effusion or pneumothorax. IMPRESSION: No acute chest disease. ACT 112: Negative or not required by law. Electronically signed by: Rubén Thomas M.D. 02/21/2022 3:00 PM Discharge Plan Visit Data Chief Complaint: Cardiac Assessment ED Provider: Dominik Sun Discharge Problem: PSVT (paroxysmal supraventricular tachycardia), Tachyarrhythmia, Chest pain Patient Disposition: Admitted As Inpatient Discharge Instructions Interventions: ED Discharge Assessment Last Done: 02/21/22 16:28 : Chest pain Qualifiers: Chest pain type: unspecified Qualified Code(s): R07.9 - Chest pain, unspecified
[2022-02-21 14:50] LABS: Basophils # (auto) 0.03 K/uL (0-0.2); Basophils % (auto) 0.3 %; Eosinophils # (auto) 0.01 K/uL (0-0.50); Eosinophils % (auto) 0.1 %; Hematocrit (blood only) 48.4 % (40.1-51.0); Hemoglobin 16.5 g/dl (14.0-18.0); Immature Granulocytes # (auto) 0.03 K/uL (0.00-0.02); Immature Granulocytes % (auto) 0.3 %; Lymphocytes % (auto) 20.2 %; Mean Corpuscular Hemoglobin 29.8 pg (25.0-34.0); Mean Corpuscular Hgb Conc 34.1 g/dL (32.0-36.0); Mean Corpuscular Volume 87.5 fL (80.0-100.0); Mean Platelet Volume 9.4 fL (9.4-12.4); Monocytes # (auto) 0.44 K/uL (0.24-0.82); Monocytes % (auto) 4.7 %; Neutrophils # (auto) 6.99 K/uL (1.4-6.5); Neutrophils % (auto) 74.4 %; Platelet Count 304 K/uL (130-400); RDW Coefficient of Variation 12.1 % (11.5-14.5); RDW Standard Deviation 38.8 fL (36.4-46.3); Red Blood Count 5.53 M/uL (4.63-6.08)
[2022-02-21] MEDS ORDERED: ADENOSINE IV SOLN 3 MG/ML 2 ML VIAL IV ONE ×2 (14:50→15:30)
[2022-02-21] MEDS ORDERED: METOPROLOL TARTRATE 1 MG/ML VIAL IV ONE ×2 (14:55→15:30)
[2022-02-21] MEDS ORDERED: ETOMIDATE 2 MG/ML 20 ML VIAL IV ONE ×2 (14:55→15:30)
--- NOTE | 2022-02-21 15:01 | XRay Report ---
XR chest 1V portable CLINICAL HISTORY: Chest Pain TECHNIQUE: Single frontal radiograph of the chest was obtained. Comparison: None available at the time of this dictation. FINDINGS: No lines and tubes are seen. The cardiomediastinal silhouette is normal. The lungs are clear. No evid ence of pleural effusion or pneumothorax. IMPRESSION: No acute chest disease. ACT 112: Negative or not required by law. Electronically signed by: Rubén Thomas M.D. 02/21/2022 3:00 PM
[2022-02-21 15:02] LABS: Partial Thromboplastin Time 28.8 Seconds (21.0-31.0); Prothrombin Time 11.1 Seconds (9.0-12.0)
[2022-02-21] MEDS ORDERED: fentaNYL citrate 100 MCG/2 ML VIAL ONE (15:03)
--- NOTE | 2022-02-21 15:20 | History & Physical Report ---
Date of Service February 21, 2022 Assessment & Plan (1) Tachyarrhythmia: Plan: Eric Arroyo is a 47-year-old male with a past medical history of lumbar disc herniation and radiculopathy, hypertension, anxiety who presents with chest pain and palpitations and was found to have a heart rate greater than 200 on ER arrival Tachycardia EKG 02/21/2022: Rate 248, QRS 172, wide QRS tachycardia - Comparison EKG 02/2010: NSR with sinus arrhythmia, QTC 401. No ST segment changes, no T waves, no heart block ? VT versus 1:1 flutter No change after adenosine 12 mg push Received 50J sync electrical cardioversion in ER, etomidate 40 mg sedation/fentanyl 50 mcg with return to normal sinus rhythm rates 80s Recieved Toprol tartrate 5 mg IV x1 Cardiology consulted. Will make recommendations on medication/ablation referral based on review of rhythm. Defer oral MTP and Amio at this time. Admit to PCU, troponin 39.5 likely due to demand. Trended. Echo pending CXR: No acute findings Anxiety Continue home Effexor xr, pt wenaing and down to 1/4 a 25mg tablet Hypertension Continued on lisinopril 20 mg daily History of lumbar decompression With POC, patient does not have any indwelling hardware Chronic residual right foot demeanor sensation of soft touch otherwise no strength or sensory deficits No acute intervention at this time DVT prophylaxis: Lovenox, pending review of underlying rhythm if thought to be flutter anticoagulation based on final plan/ablation CODE STATUS: Full code Diet: Heart healthy Dispo: PCU (2) Anxiety: (3) Hypertension: History of Present Illness Primary Care Provider: Nik Taylor Eric Arroyo is a 47-year-old male with a past medical history of lumbar disc herniation and radiculopathy, hypertension, anxiety who presents with chest pain and palpitations and was found to have a heart rate greater than 200 on ER presentation. Michael is seen at the bedside after cardioversion. He reports he was in his usual state of health until around noon when he got a little bit lightheaded. Had to pee, went and urinated when the shortness of breath and lightheadedness went away but he developed a sensation of his heart racing. Reports he has had similar symptoms with anxiety in the past, although this has been relatively well controlled and is weaning down venlafaxine and has not needed Xanax in a l nicole time. Reports he did take 0.5 mg of an old Xanax in case this was more of an anxiety attack which did not help. He did not have any chest pain or chest pressure, just a sensation of his heart racing. He has not had any past history of cardiac arrhythmia, heart attack, heart problems. 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 He reports he was last shocked about a year ago with no recent shocks denies family history of of [place]/arrhythmia. Notes a history of hypothyroidism and hypertension in his father. Denies other family history. In the ER patient with heart rate of up to 250, cardiology consulted and present at time of admission. Initially patient did not respond to 12 mg of adenosine push. Subsequently sedated with etomidate, analgesia with fentanyl and received synchronized cardioversion with 50 J to a sinus rhythm. Medical History: Reviewed Medications: Reviewed. Is weaning venlafaxine, currently takes one quarter of a 25 mg tablet Surgical History: Reviewed Allergies: Reviewed Social History: No current or former tobacco use. Rare social alcohol use, no significant use prior to presentation. Code Status: Full code Allergies Allergy/AdvReac Type Severity Reaction Status Date / Time No Known Drug Allergies Allergy Unknown . Verified 02/21/22 15:51 Home Medications Medication Instructions Recorded Confirmed Type cholecalciferol (vitamin D3) 50 50 mcg PO DAILY 02/21/22 02/21/22 History mcg (2,000 unit) tablet (Vitamin D3) lisinopril 20 mg tablet 20 mg PO DAILY 02/21/22 02/21/22 History venlafaxine 25 mg tablet 6.25 mg PO DAILY 02/21/22 02/21/22 History Past Med/Surg History Medical History Anxiety Hypertension Lumbar disc herniation with radiculopathy Surgical History Status post lumbar spine surgery for decompression of spinal cord Social History Smoking Status: Never smoker Hx Substance Use: No Feels Safe at Home: Yes Review of Systems Review of Systems: All systems reviewed & are unremarkable except as noted in Subjective Physical Exam Physical Exam: At time of admit: General: A&Ox3. NAD. Cooperative. HEENT: Atraumatic, normocephalic. Pulm: CTAB A&P. -wheezes, -rales, -rhonchi. Symmetrical chest rise. No increased work of breathing. No respiratory distress. Cardiac: RRR, -mrg. Radial pulses intact and symmetrical. Abdominal: Nontender, nondistended, soft. BS present. Ext: warm, dry. Diminished sensation to soft touch in right foot. 5/5 ankle dorsiflexion/plantarflexion, hip flexion, cinder block maker strength. Sensation soft touch intact in hands bilaterally. Results & Data Results & Data ([facility]) Vital Signs (Past 12 Hours) Vital Signs Temp Pulse Pulse Resp BP BP Pulse Ox 02/21/22 14:56 230 H 130/86 02/21/22 14:55 230 H 19 130/86 98 02/21/22 14:47 238 H 17 120/90 98 02/21/22 14:32 36.8 C 242 H 17 116/78 98 O2 Del Method 02/21/22 14:56 02/21/22 14:55 Room Air 02/21/22 14:47 Room Air 02/21/22 14:32 Room Air PG Care Time/CCT Total # of Minutes Spent Total Time Spent with Patient: Total time spent is greater than 50% in coordination of care (as documented) at patient's floor/unit and/or counseling patient: Coding Level of Care Code 34880 Initial Inpt Care Lvl 2 Diagnoses Tachyarrhythmia R00.0 Anxiety F41.9 Hypertension I10
[2022-02-21] MEDS ORDERED: fentaNYL citrate 100 MCG/2 ML VIAL IV ONE (15:30)
--- NOTE | 2022-02-21 15:31 | Emergency Department Note ---
Pre Sedation Assessment Vital Signs Temp Pulse Pulse Resp BP BP Pulse Ox 02/21/22 15:10 88 02/21/22 15:08 230 H 17 110/60 100 02/21/22 15:20 99 H 17 139/99 100 02/21/22 15:15 83 20 130/81 97 02/21/22 15:13 77 17 106/77 94 02/21/22 15:12 82 16 120/77 92 02/21/22 15:10 219 H 12 94 02/21/22 15:00 218 H 13 96 02/21/22 14:50 237 H 12 130/86 98 02/21/22 14:40 243 H 27 H 02/21/22 14:34 259 H 17 02/21/22 14:56 230 H 130/86 02/21/22 14:55 230 H 19 130/86 98 02/21/22 14:47 238 H 17 120/90 98 02/21/22 14:32 36.8 C 242 H 17 116/78 98 O2 Del Method O2 Flow Rate 02/21/22 15:10 02/21/22 15:08 Nasal Cannula 2 02/21/22 15:20 Room Air 02/21/22 15:15 Nasal Cannula 2 02/21/22 15:13 Nasal Cannula 2 02/21/22 15:12 Nasal Cannula 2 02/21/22 15:10 Room Air 02/21/22 15:00 Room Air 02/21/22 14:50 Room Air 02/21/22 14:40 02/21/22 14:34 02/21/22 14:56 02/21/22 14:55 Room Air 02/21/22 14:47 Room Air 02/21/22 14:32 Room Air Cardiovascular + regular rate and + regular rhythm; no tachycardic + S1 normal and + S2 normal + capillary refill normal Respiratory normal respiratory effort, lungs clear to auscultation + respiratory effort normal; no respiratory distress, no retractions and no uses accessory muscles Pre-Sedation Airway Assessment Smoking Status: Never smoker Short, Thick Neck: No Thyromental Distance: > or= 3.5 Finger Breadths Oral Cavity: + WNL Mallampati Class: I ASA: ASA1 NPO Status Date of Last Intake of Fluids: 02/21/22 Time of Last Intake of Fluids: 12:00 Notes The planned sedation has been discussed with the patient. Informed Consent was obtained. I have identified the patient, determined the appropriateness of sedation and have assessed the patient immediately prior to the procedure. All medicine(s) and interventions are by my order. : Chest pain Qualifiers: Chest pain type: unspecified Qualified Code(s): R07.9 - Chest pain, unspecified
--- NOTE | 2022-02-21 15:31 | Emergency Department Note ---
Post Sedation Assessment Vital Signs Temp Pulse Pulse Resp BP BP Pulse Ox 02/21/22 15:10 88 02/21/22 15:08 230 H 17 110/60 100 02/21/22 15:20 99 H 17 139/99 100 02/21/22 15:15 83 20 130/81 97 02/21/22 15:13 77 17 106/77 94 02/21/22 15:12 82 16 120/77 92 02/21/22 15:10 219 H 12 94 02/21/22 15:00 218 H 13 96 02/21/22 14:50 237 H 12 130/86 98 02/21/22 14:40 243 H 27 H 02/21/22 14:34 259 H 17 02/21/22 14:56 230 H 130/86 02/21/22 14:55 230 H 19 130/86 98 02/21/22 14:47 238 H 17 120/90 98 02/21/22 14:32 36.8 C 242 H 17 116/78 98 O2 Del Method O2 Flow Rate 02/21/22 15:10 02/21/22 15:08 Nasal Cannula 2 02/21/22 15:20 Room Air 02/21/22 15:15 Nasal Cannula 2 02/21/22 15:13 Nasal Cannula 2 02/21/22 15:12 Nasal Cannula 2 02/21/22 15:10 Room Air 02/21/22 15:00 Room Air 02/21/22 14:50 Room Air 02/21/22 14:40 02/21/22 14:34 02/21/22 14:56 02/21/22 14:55 Room Air 02/21/22 14:47 Room Air 02/21/22 14:32 Room Air Recovery Score Activity: Moves 4 extremities Respiration: Deep Breath/Cough Circulation: +/-20% PreAnes Value Consciousness: Fully Awake Oxygen Saturation: > 92% On Room Air Discharge Sedation Level of Care: Phase I Post Sedation Plan On clinical assessment, the patient appears to have tolerated the sedation without complications. Patient is recovering as anticipated. Patient will continue to be monitored by nursing and may be discharged when sedation discharge criteria are met per below protocol. Upon Completions of procedure up to 15 minutes continue every 5 minute vital signs and the P.A.R. score; then discharge to a Phase I or Fast Track to Phase II per the following guidelines: * Discharge Patient to appropriate Phase II area if PAR is 8 or greater or return to pre- procedure baseline. The post - procedure orders will be as directed. * If PAR score is less than 8 or not return to pre-procedure baseline then amanda girard will follow Phase I monitoring till PAR is reached for Phase II. The Phase I may be done in procedure room or may call to secure a Phase I area. * If naloxone or flumazenil are used for reversal, hold in Phase I for continued monitoring from when last reversal dose was given for a minimum of 60 minutes or longer pending the nurse and/or physician discretion of patient condition before discharge to Phase II. Please call the Sedation Physician to re-evaluate and complete post-note for discharge to Phase II area. Do NOT discharge from procedure sedation or Phase 1 until post- sedation evaluation note is complete by procedure /sedation MD Sedation Discharge Instructions to be given to the patient at discharge to home. Sedation Data Sedation Times Sedation Start Date: 02/21/22 Sedation Start Time: 15:08 Sedation End Date: 02/21/22 Sedation End Time: 15:25 Total Sedation Time: 17 Procedure Times Procedure Start Time:: 15:08 Procedure End Time: 15:09 : Chest pain Qualifiers: Chest pain type: unspecified Qualified Code(s): R07.9 - Chest pain, unspecified
[2022-02-21 15:46] LABS: Albumin Globulin Ratio 1.7 (0.9-2); Albumin Level 4.6 gm/dl (3.4-5.0); BUN Creatinine Ratio 9.2 (10-20); Bilirubin,Total 1.8 mg/dl (0.2-1.0); Est GFR (African American) 75.1 ml/min; Est GFR (Non-African American) 64.8 ml/min; Globulin 2.7 gm/dl (2.5-4.0); Potassium 3.8 mmol/L (3.5-5.1); Total Protein 7.3 gm/dl (6.0-8.3); Troponin I High Sensitivity 39.5 pg/ml (0-20)
[2022-02-21] MEDS ORDERED: METOPROLOL TARTRATE 25 MG TAB PO STA (16:05)
--- NOTE | 2022-02-21 16:13 | Cardiology Consultation ---
Date of Consultation February 21, 2022 Assessment & Plan (1) PSVT (paroxysmal supraventricular tachycardia): Plan 47-year-old generally healthy man who had abrupt onset of paroxysmal supraventricular tachycardia with extreme rate (up to 240 bpm) but only modest symptoms (transient chest discomfort, lightheadedness, tachypalpitations) prompting electrical cardioversion in the ER. Although never previously documented, his prior episodes of palpitations could represent PSVT which broke before evaluation. Underlying mechanism is difficult to discern due to the extreme high heart rate, possibilities include AV ember reentrant tachycardia, atrial tachycardia, or atrial flutter. Recommend continuing beta-nicole, will use relatively low dose given his young age to minimize side effects. He did receive metoprolol 5 mg IV in the ER, metoprolol tartrate 25 mg PO ordered for now, would continue this twice daily. Will obtain electrophysiology consultation to consider electrophysiology study for potential ablation, particularly since a physically active person at a relatively young age may not tolerate substantial doses of beta-nicole. If he has any recurrent SVT overnight, would administer additional IV metoprolol and, if necessary, esmolol drip. Further recommendations after evaluation by Dr. Smallwood. History of Present Illness Reason for Consultation: PSVT Requesting Physician: Dominik Sun DO History of Present Illness 47-year-old man with no cardiac history noted abrupt onset of tachypalpitations with mild chest discomfort and lightheadedness around noon today and was brought to the ER by EMS where ECG showed narrow complex tachycardia at rates of up to 248 bpm. He notes that in the past he had been evaluated for tachypalpitations, but no dysrhythmias were documented and he was told that he had "anxiety". He has no baseline symptoms of dyspnea, angina, or routine palpitations. His prior episodes of palpitations were years ago. He was eating lunch today when he noted the onset of symptoms and called for EMS. In the field, as well as in the emergency department he was given adenosine up to 12 mg without discernible effect, carotid massage also was without discernible effect. He was normotensive and did not have chest pain or dyspnea when lying in the ER. However, due to his extreme tachycardia and nonresponse to adenosine, carotid massage, and 5 mg IV metoprolol, he was sedated and underwent electrical cardioversion to sinus rhythm. Subsequently, he was comfortable and had no somatic complaints. Allergies Allergy/AdvReac Type Severity Reaction Status Date / Time No Known Drug Allergies Allergy Unknown . Verified 02/21/22 15:51 Home Medications Medication Instructions Recorded Confirmed Type cholecalciferol (vitamin D3) 50 50 mcg PO DAILY 02/21/22 02/21/22 History mcg (2,000 unit) tablet (Vitamin D3) lisinopril 20 mg tablet 20 mg PO DAILY 02/21/22 02/21/22 History venlafaxine 25 mg tablet 6.25 mg PO DAILY 02/21/22 02/21/22 History Patient History Medical History Anxiety Hypertension Lumbar disc herniation with radiculopathy Surgical History Status post lumbar spine surgery for decompression of spinal cord Social History Smoking Status: Never smoker Hx Substance Use: No Feels Safe at Home: Yes Physical Exam Physical Exam: Adult white male initially borderline distressed but currently comfortable. Normotensive. Pulse 74 bpm and regular without ectopy. Skin: no ecchymoses or generalized lesions. HEENT: unremarkable. Neck: no JVD or carotid bruits. Lungs: clear. Cardiac: regular rhythm, normal S1 and S2 no murmur or gallop. Abdomen: benign. Extremities: no edema, pulses intact. Neurologic: normal affect and conversation, nonfocal. Results & Data ([facility]) Laboratory Results Normal electrolytes, BUN 12, creatinine 1.31. Diagnostic Findings Initial ECG showed narrow complex tachycardia 248 bpm with either incomplete right bundle branch block or R prime retrograde P wave in V1. A second ECG again showed narrow complex tachycardia at 232 bpm with incomplete right bundle branch block. A third ECG subsequent to cardioversion showed sinus rhythm and was completely unremarkable. Chest x-ray showed no acute disease. PG Care Time/CCT Total # of Minutes Spent Total Time Spent with Patient: Total time spent is greater than 50% in coordination of care (as documented) at patient's floor/unit and/or counseling patient: Coding Level of Care Code 29111 Inpt Consult Level 4 Diagnoses PSVT (paroxysmal supraventricular tachycardia) I47.1
[2022-02-21] MEDS ORDERED: ACETAMINOPHEN 325 MG TAB PO PRN (17:05)
--- NOTE | 2022-02-21 17:14 | Electrocardiogram Report ---
Test Reason : Blood Pressure : / mmHG Vent. Rate : 248 BPM Atrial Rate : 241 BPM P-R Int : 000 ms QRS Dur : 172 ms QT Int : 168 ms P-R-T Axes : 000 036 000 degrees QTc Int : 341 ms Supraventricular tachycardia Incomplete right bundle branch block Abnormal ECG When compared with ECG of 28-FEB-2010 09:07, Vent. rate has increased BY 158 BPM Incomplete right bundle branch block now present Confirmed by Danilo Sanchez ([id number]) on 02/21/2022 5:14:15 PM Referred By: Confirmed By:Danilo Sanchez
--- NOTE | 2022-02-21 17:17 | Electrocardiogram Report ---
Test Reason : Blood Pressure : / mmHG Vent. Rate : 232 BPM Atrial Rate : 234 BPM P-R Int : 000 ms QRS Dur : 190 ms QT Int : 186 ms P-R-T Axes : 000 066 000 degrees QTc Int : 365 ms Supraventricular tachycardia Incomplete right bundle branch block Abnormal ECG When compared with ECG of 21-FEB-2022 14:31, No significant change was found Confirmed by Danilo Sanchez ([id number]) on 02/21/2022 5:17:39 PM Referred By: Cathy Wade Confirmed By:Danilo Sanchez
--- NOTE | 2022-02-21 17:17 | Electrocardiogram Report ---
Test Reason : Blood Pressure : / mmHG Vent. Rate : 080 BPM Atrial Rate : 080 BPM P-R Int : 142 ms QRS Dur : 084 ms QT Int : 340 ms P-R-T Axes : 063 044 016 degrees QTc Int : 392 ms Sinus rhythm with Fusion complexes Incomplete right bundle branch block Left atrial enlargement Borderline ECG When compared with ECG of 21-FEB-2022 14:54, Sinus rhythm has replaced Supraventricular tachycardia Vent. rate has decreased BY 152 BPM Confirmed by Danilo Sanchez ([id number]) on 02/21/2022 5:16:52 PM Referred By: REFERRED SELF Confirmed By:Danilo Sanchez
[2022-02-22 06:03] LABS: Basophils # (auto) 0.02 K/uL (0-0.2); Basophils % (auto) 0.3 %; Eosinophils # (auto) 0.02 K/uL (0-0.50); Eosinophils % (auto) 0.3 %; Hemoglobin 16.1 g/dl (14.0-18.0); Immature Granulocytes # (auto) 0.03 K/uL (0.00-0.02); Immature Granulocytes % (auto) 0.4 %; Lymphocytes # (auto) 2.27 K/uL (1.2-3.4); Lymphocytes % (auto) 31.4 %; Mean Corpuscular Hemoglobin 30.1 pg (25.0-34.0); Mean Corpuscular Hgb Conc 34.3 g/dL (32.0-36.0); Mean Corpuscular Volume 87.9 fL (80.0-100.0); Mean Platelet Volume 9.3 fL (9.4-12.4); Monocytes # (auto) 0.48 K/uL (0.24-0.82); Monocytes % (auto) 6.6 %; Neutrophils # (auto) 4.42 K/uL (1.4-6.5); Platelet Count 238 K/uL (130-400); RDW Coefficient of Variation 12.4 % (11.5-14.5); RDW Standard Deviation 39.4 fL (36.4-46.3); Red Blood Count 5.35 M/uL (4.63-6.08); White Blood Count 7.24 K/ul (4.8-10.8)
[2022-02-22 06:43] LABS: Albumin Globulin Ratio 1.7 (0.9-2); Albumin Level 4.2 gm/dl (3.4-5.0); BUN Creatinine Ratio 13.6 (10-20); Bilirubin,Total 2.7 mg/dl (0.2-1.0); Calcium 9.3 mg/dl (8.5-10.1); Creatinine Clr Calc Pharmacy 100.1 ml/min; Est GFR (African American) 92.8 ml/min; Est GFR (Non-African American) 80.1 ml/min; Globulin 2.5 gm/dl (2.5-4.0); Potassium 4.2 mmol/L (3.5-5.1); Total Protein 6.7 gm/dl (6.0-8.3)
[2022-02-22] MEDS: lisinopril 20 MG TAB PO SCH (08:28)
[2022-02-22 08:47] LABS: Bilirubin Direct 0.3 mg/dl (0-0.2)
--- NOTE | 2022-02-22 08:47 | Cardioversion ---
Date of Service February 21, 2022 PG Electrical Cardioversion Rp Electrical Cardioversion Report Indication: SVT at 248 bpm Written consent was obtained after the risks and benefits were explained, including but not limited to pain, thermal burn, allergic reaction, aspiration, airway obstruction, laryngospasm, infection, hypotension, and cardiorespiratory arrest. At this time, the risks of the procedure are less than the risks of NOT performing the procedure. A time out was taken and the correct patient and procedure identified. The patient was on nasal vaannula and end tidal CO2 monitoring prior to the procedure. Suction, airway equipment, medications, respiratory equipment, ACLS cart, and appropriate personnel were prepared prior to the initiation of the procedure. Sedation was achieved utilizing fentanyl and etomidate. The biphasic defibrillator was set to 50 joules of energy and synched. After confirmation of sedation and "all clear" safety check the synchronized shock was delivered. This resulted in successful conversion of the dysrhythmia back into sinus rhythm. See nursing notes for dosages and times. There were no complications and the patient recovered uneventfully from the procedure. Coding Level of Care Code Cardioversion, elective Additional Codes Electrical Cardioversion Report ([id number]) Time Spent (min) 20
[2022-02-22] MEDS ORDERED: ENOXAPARIN INJ 40 MG/0.4 ML SYR SQ SCH (09:00)
--- NOTE | 2022-02-22 13:15 | Cardiology Progress Note ---
Date of Service February 22, 2022 Assessment & Plan (1) PSVT (paroxysmal supraventricular tachycardia): (2) Anxiety: (3) Elevated troponin: Plan 1. SVT: I believe he has some type of reentrant SVT, it is conceivable it is something different but it is not likely atrial flutter or of ventricular origin. I suspect it is due to an abnormal pathway and given the severity of his presentation I think he should have electrophysiologic study with thoughts of ablation if amenable. I discussed this with him and his family and they are agreeable. I will arrange this for tomorrow. 2. Anxiety: He describes a long history of anxiety which is sometimes, although not always, associated with rapid heart rates. Anxiety could make the arrhythmia worse due to elevated catecholamines, or perhaps the arrhythmia causes some degree of anxiety. I would look for causes and hopefully treatment of his arrhythmia separate from the anxiety. 3. Elevated troponin: His troponin trend is consistent with demand ischemia, with such rapid heart rate these troponins could be explained based on rate alone without the possibility of underlying coronary disease. Coronary disease is possible but I would not look for it. Admission and Anticipated Discharge Date Admission Date: February 21, 2022 Subjective He is feeling well today, I reviewed his history with multiple family members present. He does confirm episodes of fast heart rate going back 10 to 12 years and occurring intermittently and generally lasting less than a minute, sometimes but not always associated with anxiety which he suffers from. They were never recorded, his presenting symptoms yesterday were similar but much longer and less tolerable. No chest discomfort today, no shortness of breath. Physical Exam Physical Exam: Constitutional: Alert, cooperative and in no distress. Pulmonary: Clear to auscultation bilaterally. Cardiac: Regular rhythm with no murmur, gallop or rub. Abdomen: Soft, nontender with normal bowel sounds. Extremities: No edema. Skin: No rash, ecchymoses or petechiae. Results & Data ([facility]) Vital Signs (Past 12 Hours) Vital Signs Temp Pulse Pulse Resp BP Pulse Ox O2 Del Method 02/22/22 11:43 36.7 C 73 19 114/73 97 Room Air 02/22/22 09:15 68 02/22/22 07:37 36.7 C 69 20 108/62 96 Room Air 02/22/22 03:37 36.6 C 62 18 126/74 94 Room Air Laboratory Results Cardiac Enzymes 02/21/22 02/21/22 02/21/22 Range/Units 14:31 16:04 23:14 AST 26 (13-39) U/L Troponin I High Sens 39.5 H 103.4 H* D 238.2 H* D (0-20) pg/ml 02/22/22 02/22/22 Range/Units 05:51 05:51 AST 23 (13-39) U/L Troponin I High Sens 128.3 H* D (0-20) pg/ml Coagulation 02/21/22 Range/Units 14:31 PT 11.1 (9.0-12.0) Seconds APTT 28.8 (21.0-31.0) Seconds CBC 02/21/22 02/22/22 Range/Units 14:31 05:51 WBC 9.40 7.24 (4.8-10.8) K/ul RBC 5.53 5.35 (4.63-6.08) M/uL Hgb 16.5 16.1 (14.0-18.0) g/dl Hct 48.4 47.0 (40.1-51.0) % Plt Count 304 238 (130-400) K/uL Neut # (Auto) 6.99 H 4.42 (1.4-6.5) K/uL Lymph # (Auto) 1.90 2.27 (1.2-3.4) K/uL [place] # (Auto) 0.44 0.48 (0.24-0.82) K/uL Eos # (Auto) 0.01 0.02 (0-0.50) K/uL Baso # (Auto) 0.03 0.02 (0-0.2) K/uL Comprehensive Metabolic Panel 02/21/22 02/22/22 02/22/22 Range/Units 14:31 05:51 05:51 Sodium 139 138 (136-145) mmol/L Potassium 3.8 4.2 (3.5-5.1) mmol/L Chloride 104 104 (98-107) mmol/L Carbon Dioxide 25 27 (21-32) mmol/L BUN 12 15 (6-23) mg/dl Creatinine 1.31 1.10 (0.6-1.4) mg/dl Glucose 135 H 110 H (70-99(Fasting)) mg/dl Calcium 10.0 9.3 (8.5-10.1) mg/dl Direct Bilirubin 0.3 H (0-0.2) mg/dl AST 26 23 (13-39) U/L ALT 61 H 52 (7-52) U/L Alkaline Phosphatase 63 51 (34-104) U/L Total Protein 7.3 6.7 (6.0-8.3) gm/dl Albumin 4.6 4.2 (3.4-5.0) gm/dl Intake and Output 02/21/22 02/22/22 02/22/22 22:59 06:59 14:59 Intake Total 400 / 550 150 / 550 Output Total 1000 / 1000 Balance -600 / -450 150 / -450 Intake: Oral 400 / 550 150 / 550 Output: Urine 1000 / 1000 Other: # Unmeasured Voids 2 Weight 101.4 kg 101.4 kg Weight Measurement Method Built in Bedscale Built in [facility] Diagnostic Findings Telemetry: Sinus rhythm in the 60s, no arrhythmias since presentation. PG Care Time/CCT Total # of Minutes Spent Total Time Spent with Patient: Total time spent is greater than 50% in coordination of care (as documented) at patient's floor/unit and/or counseling patient: Coding Level of Care Code 71630 Subseq Hosp Care Lvl 3 Diagnoses PSVT (paroxysmal supraventricular tachycardia) I47.1 Anxiety F41.9 Elevated troponin R77.8
[2022-02-22] MEDS: METOPROLOL TARTRATE 25 MG TAB PO SCH ×2 (13:52→20:20)
--- NOTE | 2022-02-22 15:54 | Hospitalist Progress Note ---
Date of Service February 22, 2022 Assessment & Plan (1) PSVT (paroxysmal supraventricular tachycardia): Plan: Eric Arroyo is a 47-year-old male with a past medical history of lumbar disc herniation and radiculopathy, hypertension, anxiety who presents with chest pain and palpitations and was found to have a heart rate greater than 200 on ER arrival EKG 02/21/2022: Rate 248, QRS 172, wide QRS tachycardia - Comparison EKG 02/2010: NSR with sinus arrhythmia, QTC 401. No ST segment changes, no T waves, no heart block No change after adenosine 12 mg push Received 50J sync electrical cardioversion in ER, etomidate 40 mg sedation/fentanyl 50 mcg with return to normal sinus rhythm rates 80s - Currently in sinus rhythm Cardiology consulted, continue metoprolol tartrate 25 mg twice daily per recommendation Butt Trimmer believes it to be supraventricular tachycardia, electrophysiology study to be done tomorrow by Dr. Donaldson, n.p.o. after midnight Troponin up trended to 238 but is now downtrending and at 128 this morning Echo without any abnormality CXR: No acute findings (2) Anxiety: Plan: - Patient is currently weaned off of Effexor, will hold off giving him this medication for now - Discussed case with psych liaison, patient is amendable to doing cognitive behavioral therapy, will have them discuss options for outpatient (3) Hypertension: Plan: - Continue lisinopril 20 mg daily (4) Lumbar disc herniation with radiculopathy: Plan: With POC, patient does not have any indwelling hardware Chronic residual right foot demeanor sensation of soft touch otherwise no strength or sensory deficits No acute intervention at this time Diet: Heart healthy DVT prophylaxis: Lovenox Disposition: PCU CODE STATUS: Full code Admission and Anticipated Discharge Date Admission Date: February 21, 2022 Supervising Physician Co-Signing Physician Notes Resident Physician Supervision Note: I independently interviewed and examined the patient and verified the branch history and physical, reviewed labs and image studies and agree with resident findings and care plan. Subjective Patient seen at bedside this morning. No acute events reported overnight. Patient doing much better today and feeling much more like himself. Seems that he has had intervals of anxiety with rapid heart rate and chest discomfort for many years but would go away rather suddenly. Seems that his anxiety is a trigger for this general unwellness feeling. Also, his father seems to be a big trigger for his anxiety who is in town with him currently. Overall it sounds like this episode of abnormal heart rhythm may not be a new symptom but rather one that did not resolve required medical intervention. For his anxiety, patient was taking Effexor but has been slowly titrating off and is currently not taking anymore. He states that he did this as because he was having some brain fog and difficulty with focusing. Additionally when diving back into his history it seems that it was recommended that he was recommended to do a polysomnography test to evaluate for sleep apnea by his primary care provider. Patient never had this done. Reports that he does snore at least he has in the past. STOP-BANG score of 3 putting him at risk for sleep apnea. Otherwise patient overall feels well and has no other complaints at this time Review of Systems Review of Systems: All systems reviewed & are unremarkable except as noted in HPI & below Physical Exam Constitutional: WD/WN, vitals as above Eyes: + anicteric sclerae Neck: trachea midline, no thyromegaly Respiratory: normal respiratory effort, lungs clear to auscultation Cardiovascular: RRR, no murmur, no edema Chest (Breasts): normal inspection/palpation of breasts Gastrointestinal (Abdomen): Inspection/Auscultation: abdomen normal to inspection Musculoskeletal: Head/Neck/Chest: normocephalic and head atraumatic Skin: no rashes, warm and dry Neurologic: moves all extremities Psychiatric: Orientation: alert and oriented x 3 Affect: + anxious affect Results & Data Results & Data ([facility]) Vital Signs (Past 12 Hours) Vital Signs Temp Pulse Pulse Resp BP Pulse Ox O2 Del Method 02/22/22 15:42 36.9 C 64 18 106/71 97 Room Air 02/22/22 11:43 36.7 C 73 19 114/73 97 Room Air 02/22/22 09:15 68 02/22/22 07:37 36.7 C 69 20 108/62 96 Room Air
--- NOTE | 2022-02-22 17:00 | Electrocardiogram Report ---
Test Reason : Blood Pressure : / mmHG Vent. Rate : 068 BPM Atrial Rate : 068 BPM P-R Int : 136 ms QRS Dur : 084 ms QT Int : 378 ms P-R-T Axes : 056 034 013 degrees QTc Int : 401 ms Normal sinus rhythm Normal ECG When compared with ECG of 21-FEB-2022 15:15, Nonspecific T wave abnormality, worse in Inferior leads Confirmed by Fede Donaldson ([id number]) on 02/22/2022 4:59:41 PM Referred By: REFERRED SELF Confirmed By:Fede Donaldson
[2022-02-23] MEDS ORDERED: LIDOCAINE 1% LOCAL 20 ML VIAL ONE (06:58)
[2022-02-23 07:49] LABS: Hematocrit (blood only) 47.5 % (40.1-51.0); Hemoglobin 16.3 g/dl (14.0-18.0); Mean Corpuscular Hgb Conc 34.3 g/dL (32.0-36.0); Mean Corpuscular Volume 87.3 fL (80.0-100.0); Mean Platelet Volume 9.3 fL (9.4-12.4); Platelet Count 240 K/uL (130-400); RDW Coefficient of Variation 12.6 % (11.5-14.5); RDW Standard Deviation 39.8 fL (36.4-46.3); Red Blood Count 5.44 M/uL (4.63-6.08); White Blood Count 6.46 K/ul (4.8-10.8)
[2022-02-23 08:22] LABS: BUN Creatinine Ratio 16.8 (10-20); Calcium 9.5 mg/dl (8.5-10.1); Creatinine Clr Calc Pharmacy 102.5 ml/min; Est GFR (Non-African American) 82.8 ml/min; Potassium 4.5 mmol/L (3.5-5.1)
[2022-02-23] MEDS ORDERED: MIDAZOLAM HCL 5 MG/ML 1 ML VIAL ONE (11:35)
[2022-02-23] MEDS ORDERED: fentaNYL citrate 100 MCG/2 ML VIAL ONE (11:35)
--- NOTE | 2022-02-23 11:57 | Pre Anesthesia Assessment ---
Date of Service February 23, 2022 Pre Sedation Assessment Vital Signs Temp Pulse Pulse Pulse Resp BP Pulse Ox 02/23/22 07:58 63 02/23/22 07:26 37.2 C 69 20 115/75 92 02/23/22 02:15 36.6 C 57 L 18 99/62 L 94 02/22/22 23:01 61 02/22/22 22:56 36.5 C 59 L 16 113/72 95 02/22/22 19:40 36.8 C 67 18 108/63 93 02/22/22 15:42 36.9 C 64 18 106/71 97 O2 Del Method 02/23/22 07:58 02/23/22 07:26 Room Air 02/23/22 02:15 Room Air 02/22/22 23:01 02/22/22 22:56 Room Air 02/22/22 19:40 Room Air 02/22/22 15:42 Room Air Cardiovascular + regular rate and + regular rhythm Respiratory + respiratory effort normal Pre-Sedation Airway Assessment Smoking Status: Never smoker Hx Sleep Apnea: No Hx Difficult Intubation: No Short, Thick Neck: No Thyromental Distance: > or= 3.5 Finger Breadths Oral Cavity: + WNL Mallampati Class: I ASA: ASA1 NPO Status Date of Last Intake of Fluids: 02/21/22 Time of Last Intake of Fluids: 12:00 Procedure Planning Contraindications for Sedation: none Current Medications Reviewed: Yes Notes The planned sedation has been discussed with the patient. Informed Consent was obtained. I have identified the patient, determined the appropriateness of sedation and have assessed the patient immediately prior to the procedure. All medicine(s) and interventions are by my order.
[2022-02-23] MEDS ORDERED: ISOPROTERENOL HCL 0.2 MG/ML 5 ML AMP IV ONE (12:48)
--- NOTE | 2022-02-23 14:02 | Electrophysiology Report ---
Date of Service February 23, 2022 Electrophysiology Procedure Electrophysiology Procedure Report : Complete electrophysiologic testing including pacing from the left atrium via the coronary sinus, arrhythmia induction, drug infusion, ultrasound-guided vascular access Staff commodities requirements analyst: Vasyl Heller MD Indication: The patient is a 47-year-old gentleman admitted to the hospital with an episode of SVT. He was symptomatic and required cardioversion in the emergency room. Administration of adenosine did not terminate the arrhythmia. In order to better characterize the arrhythmia and perhaps provide definitive cure he was advised to consider EP study and possible ablation today. Procedure in detail the patient was informed the risks benefits and alternatives to the intended procedure. He understood which proceed. He was taken to the electrophysiology suite in a fasting state. Conscious sedation was administered per protocol the patient was monitored electrocardiographically throughout today's procedure. The right internal jugular area and right femoral areas were prepped and draped in usual sterile fashion. These areas were anesthetized using subcutaneous menstruation of lidocaine and Marcaine solution. The right internal jugular vein was subsequently accessed using modified Seldinger technique under ultrasound guidance in a venous sheath was placed over the site over a guidewire the right femoral vein was subsequently accessed 3 times using modified Seldinger technique. Sheaths were placed over guidewires at this site used facilitate passage of the EP catheters to the respective chambers under fluoroscopic guidance. This included right ventricular, coronary sinus and his bundle catheters. The patient's baseline conduction system was characterize. Attempts at arrhythmia induction were then performed using burst atrial pacing and programmed stimulation. Isoproterenol infusion was also employed in order to attempt arrhythmia induction. At the conclusion of the case the catheters and sheaths were removed. Hemostasis was achieved at the access site using manual pressure. The patient tolerated procedure well. There were no immediate complications. Findings baseline conduction intervals cycle length in the atrium 832 milliseconds Cycle length in the ventricle 838 milliseconds WA interval 144 milliseconds QRS duration 82 milliseconds QT interval 350 milliseconds AH interval 65 milliseconds HV interval 35 milliseconds Effective refractory period of the AV node less than 250 milliseconds [address] Wenckebach less than 250 milliseconds Ventricular fracture. Two hundred thirty milliseconds Should be noted that retrograde conduction with program stimulation was concentric and decremental arrhythmia induction attempts at arrhythmia induction were made with programmed stimulation from the coronary sinus. Program stimulation was performed on and off isoproterenol implying up to 3 extrastimuli down to cycle length 250 milliseconds. Burst atrial pacing was also performed down to cycle length of 250 milliseconds and performed from both the proximal and medial aspects of the coronary sinus as well as the right atrium. Ventricular stimulation protocol was also employed using RV pacing from 2 sites in the right ventricle. Two different pacing cycle lengths and up to 3 extrastimuli were applied at both pacing locations. Impression no evidence of accessory pathway conduction no definite evidence of dual AV ember physiology. There appeared to be a jump in the AH interval during 1 pacing train the could not be reproduced No echo beats seen at any time during today's procedure despite aggressive p acing, multiple pacing runs and use of isoproterenol Block in the fast AV ember pathway could generally not be achieved despite very short coupling intervals implying up to 3 extrastimuli No ventricular arrhythmias Patient did develop atrial fibrillation in the initial part of the study with decremental atrial pacing. There was a period of regularity resembling one-to-one conduction of an atrial flutter which later transitioned back into atrial fibrillation and terminated. No inducible arrhythmias [facility] Electrophysiology codes EP Procedure 1: Electrophysiology: 19491-55 Comp EPS w/LA pacing Procedure 2: Electrophysiology: 85590 Arrhythmia induction Procedure 3: Electrophysiology: 05621 Drug Stimulation PG Moderate Sedation Codes Moderate Sedation Codes Procedure 1: Sedation/Anesthesia: 62259 Mod Sedation by the same physician;Init15 Min Child Age 5 & Up Procedure 2: Sedation/Anesthesia: 73693 Mod Sedation by the same physician; Ea [id number] Minutes
--- NOTE | 2022-02-23 14:02 | Post Anesthesia Assessment ---
Date of Service February 23, 2022 Post Sedation Assessment Vital Signs Temp Pulse Pulse Pulse Resp BP Pulse Ox 02/23/22 07:58 63 02/23/22 07:26 37.2 C 69 20 115/75 92 02/23/22 02:15 36.6 C 57 L 18 99/62 L 94 02/22/22 23:01 61 02/22/22 22:56 36.5 C 59 L 16 113/72 95 02/22/22 19:40 36.8 C 67 18 108/63 93 02/22/22 15:42 36.9 C 64 18 106/71 97 O2 Del Method 02/23/22 07:58 02/23/22 07:26 Room Air 02/23/22 02:15 Room Air 02/22/22 23:01 02/22/22 22:56 Room Air 02/22/22 19:40 Room Air 02/22/22 15:42 Room Air Recovery Score Activity: Moves 4 extremities Respiration: Deep Breath/Cough Circulation: +/-20% PreAnes Value Consciousness: Fully Awake Oxygen Saturation: > 92% On Room Air Post Anesthesia Score: 10 Discharge Sedation Level of Care: Fast Track Phase II Post Sedation Plan On clinical assessment, the patient appears to have tolerated the sedation without complications. Patient is recovering as anticipated. Patient will continue to be monitored by nursing and may be discharged when sedation discharge criteria are met per below protocol. Upon Completions of procedure up to 15 minutes continue every 5 minute vital signs and the P.A.R. score; then discharge to a Phase I or Fast Track to Phase II per the following guidelines: * Discharge Patient to appropriate Phase II area if PAR is 8 or greater or return to pre- procedure baseline. The post - procedure orders will be as directed. * If PAR score is less than 8 or not return to pre-procedure baseline then patient will follow Phase I monitoring till PAR is reached for Phase II. The Phase I may be done in procedure room or may call to secure a Phase I area. * If naloxone or flumazenil are used for reversal, hold in Phase I for continued monitoring from when last reversal dose was given for a minimum of 60 minutes or longer pending the nurse and/or physician discretion of patient condition before discharge to Phase II. Please call the Sedation Physician to re-evaluate and complete post-note for discharge to Phase II area. Do NOT discharge from procedure sedation or Phase 1 until post- sedation evaluation note is complete by procedure /sedation MD Sedation Discharge Instructions to be given to the patient at discharge to home.
[2022-02-23] MEDS ORDERED: oxyCODONE HCL IR 5 MG TAB (IMMEDIATE RELEASE) PO PRN (14:03)
[2022-02-23] MEDS ORDERED: ACETAMINOPHEN 325 MG TAB PO PRN (14:03)
[2022-02-23] MEDS: lisinopril 20 MG TAB PO SCH (15:17)
[2022-02-23] MEDS: METOPROLOL TARTRATE 25 MG TAB PO SCH ×2 (15:17→20:10)
--- NOTE | 2022-02-23 17:02 | Hospitalist Progress Note ---
Date of Service February 23, 2022 Assessment & Plan (1) PSVT (paroxysmal supraventricular tachycardia): Plan: Eric Arroyo is a 47-year-old male with a past medical history of lumbar disc herniation and radiculopathy, hypertension, anxiety who presents with chest pain and palpitations and was found to have a heart rate greater than 200 on ER arrival EKG 02/21/2022: Rate 248, QRS 172, wide QRS tachycardia - Comparison EKG 02/2010: NSR with sinus arrhythmia, QTC 401. No ST segment changes, no T waves, no heart block No change after adenosine 12 mg push Received 50J sync electrical cardioversion in ER, etomidate 40 mg sedation/fentanyl 50 mcg with return to normal sinus rhythm rates 80s - Currently in sinus rhythm Cardiology consulted, continue metoprolol tartrate 25 mg twice daily per recommendation Classroom Instructional Aide believes it to be supraventricular tachycardia, electrophysiology study which did not seem to show any particular etiology. Cardiology recommending lunchroom monitor to take home. - Patient needs to remain flat for 4 hours postprocedure so will be staying overnight Troponin up trended to 238 but is now downtrending and at 128 at the latest value Echo without any abnormality CXR: No acute findings (2) Anxiety: Plan: - Patient is currently weaned off of Effexor, will hold off giving him this medication for now - Discussed case with psych liaison, patient given information about resources in regards to outpatient therapy if he wishes to participate (3) Hypertension: Plan: - Continue lisinopril 20 mg daily (4) Lumbar disc herniation with radiculopathy: Plan: With POC, patient does not have any indwelling hardware Chronic residual right foot demeanor sensation of soft touch otherwise no strength or sensory deficits No acute intervention at this time Diet: Heart healthy DVT prophylaxis: Lovenox Disposition: PCU CODE STATUS: Full code Admission and Anticipated Discharge Date Admission Date: February 21, 2022 Supervising Physician Co-Signing Physician Notes Resident Physician Supervision Note: I independently interviewed and examined the patient and verified the branch history and physical, reviewed labs and image studies and agree with resident findings and care plan. Subjective Patient seen at bedside this morning. No acute events reported overnight. Patient in a pleasant mood this morning and is not having any remarkable anxiety, chest discomfort, shortness of breath, or chest pain. Overall doing well. Currently n.p.o. for procedure when saw him this morning. When seeing him in the afternoon after his procedure, patient was comfortable and did not have any complications. No complaints today Review of Systems Review of Systems: All systems reviewed & are unremarkable except as noted in HPI & below Physical Exam Constitutional: WD/WN, vitals as above Eyes: + anicteric sclerae Neck: trachea midline, no thyromegaly Respiratory: normal respiratory effort, lungs clear to auscultation Cardiovascular: RRR, no murmur, no edema Chest (Breasts): normal inspection/palpation of breasts Gastrointestinal (Abdomen): Inspection/Auscultation: abdomen normal to inspection Musculoskeletal: Head/Neck/Chest: normocephalic and head atraumatic Skin: no rashes, warm and dry Neurologic: moves all extremities Psychiatric: Orientation: alert and oriented x 3 Affect: + anxious affect Results & Data Results & Data ([facility]) Vital Signs (Past 12 Hours) Vital Signs Temp Pulse Pulse Pulse Resp BP Pulse Ox 02/23/22 16:57 70 20 111/71 94 02/23/22 16:18 109 H 127/75 02/23/22 16:00 81 02/23/22 15:48 80 119/74 02/23/22 15:18 84 120/75 02/23/22 15:00 80 118/74 02/23/22 14:35 72 16 111/76 99 02/23/22 14:20 70 16 105/69 99 02/23/22 07:58 63 02/23/22 07:26 37.2 C 69 20 115/75 92 O2 Del Method 02/23/22 16:57 Room Air 02/23/22 16:18 02/23/22 16:00 02/23/22 15:48 02/23/22 15:18 02/23/22 15:00 02/23/22 14:35 Room Air 02/23/22 14:20 Room Air 02/23/22 07:58 02/23/22 07:26 Room Air
[2022-02-24] MEDS: lisinopril 20 MG TAB PO SCH (09:02)
[2022-02-24] MEDS: METOPROLOL TARTRATE 25 MG TAB PO SCH (09:02)
[2022-02-24 09:05] LABS: Hematocrit (blood only) 50.8 % (40.1-51.0); Hemoglobin 17.4 g/dl (14.0-18.0); Mean Corpuscular Hemoglobin 29.8 pg (25.0-34.0); Mean Corpuscular Hgb Conc 34.3 g/dL (32.0-36.0); Mean Corpuscular Volume 87.1 fL (80.0-100.0); Mean Platelet Volume 9.3 fL (9.4-12.4); Platelet Count 255 K/uL (130-400); RDW Coefficient of Variation 12.4 % (11.5-14.5); RDW Standard Deviation 39.4 fL (36.4-46.3); Red Blood Count 5.83 M/uL (4.63-6.08); White Blood Count 6.72 K/ul (4.8-10.8)
[2022-02-24 09:31] LABS: Creatinine Clr Calc Pharmacy 98.1 ml/min; Est GFR (African American) 91.8 ml/min; Est GFR (Non-African American) 79.2 ml/min; Potassium 4.6 mmol/L (3.5-5.1)
--- NOTE | 2022-02-24 13:14 | Discharge Summary ---
Date of Service February 24, 2022 Admission HPI Per Admitting Provider Eric Arroyo is a 47-year-old male with a past medical history of lumbar disc herniation and radiculopathy, hypertension, anxiety who presents with chest pain and palpitations and was found to have a heart rate greater than 200 on ER presentation. Michael is seen at the bedside after cardioversion. He reports he was in his usual state of health until around noon when he got a little bit lightheaded. Had to pee, went and urinated when the shortness of breath and lightheadedness went away but he developed a sensation of his heart racing. Reports he has had similar symptoms with anxiety in the past, although this has been relatively well controlled and is weaning down venlafaxine and has not needed Xanax in a long time. Reports he did take 0.5 mg of an old Xanax in case this was more of an anxiety attack which did not help. He did not have any chest pain or chest pressure, just a sensation of his heart racing. He has not had any past history of cardiac arrhythmia, heart attack, heart problems. 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 He reports he was last shocked about a year ago with no recent shocks denies family history of of MA/arrhythmia. Notes a history of hypothyroidism and hypertension in his father. Denies other family history. In the ER patient with heart rate of up to 250, cardiology consulted and present at time of admission. Initially patient did not respond to 12 mg of adenosine push. Subsequently sedated with etomidate, analgesia with fentanyl and received synchronized cardioversion with 50 J to a sinus rhythm. Medical History: Reviewed Medications: Reviewed. Is weaning venlafaxine, currently takes one quarter of a 25 mg tablet Surgical History: Reviewed Allergies: Reviewed Social History: No current or former tobacco use. Rare social alcohol use, no significant use prior to presentation. Code Status: Full code Principal Diagnosis Supraventricular tachycardia Discharge Exam Constitutional WD/WN, vitals as above Eyes + anicteric sclerae Neck trachea midline, no thyromegaly Respiratory normal respiratory effort, lungs clear to auscultation Cardiovascular RRR, no murmur, no edema Chest (Breasts) normal inspection/palpation of breasts Gastrointestinal (Abdomen) Inspection/Auscultation: abdomen normal to inspection Musculoskeletal Head/Neck/Chest: normocephalic and head atraumatic Skin no rashes, warm and dry Neurologic moves all extremities Psychiatric Orientation: alert and oriented x 3 Discharge Data Allergies Allergy/AdvReac Type Severity Reaction Status Date / Time No Known Drug Allergies Allergy Unknown . Verified 02/21/22 15:51 Consultations 02/21/22 14:47 Consult Cardiology Stat 02/21/22 15:11 ED Decision to Admit Stat 02/21/22 17:22 Consult Cardiology Routine Procedures Performed Operation Date: 02/23/22 11:30 Actual Procedures p EPS w/o Induction (RA,HIS,RV) - Vasyl Heller MD s LA Pacing (Add-On) - Vasyl Heller MD s Ultrasound Vascular Access - MD eric Bland Drug Stimulation - Vasyl Heller MD Ordered Studies 02/23/22 06:45 EP Lab Images for PACS ONCE Hospital Course (1) PSVT (paroxysmal supraventricular tachycardia): Eric Arroyo is a 47-year-old male with a past medical history of lumbar disc herniation and radiculopathy, hypertension, anxiety who presents with chest pain and palpitations and was found to have a heart rate greater than 200 on ER arrival EKG 02/21/2022: Rate 248, QRS 172, wide QRS tachycardia - Comparison EKG 02/2010: NSR with sinus arrhythmia, QTC 401. No ST segment changes, no T waves, no heart block No change after adenosine 12 mg push Received 50J sync electrical cardioversion in ER, etomidate 40 mg sedation/fentanyl 50 mcg with return to normal sinus rhythm rates 80s - Currently in sinus rhythm Cardiology consulted, continue metoprolol tartrate 25 mg twice daily per recommendation Displayer believes it to be supraventricular tachycardia, electrophy siology study which did not seem to show any particular etiology. Cardiology recommending to get set up with home cardiac monitoring Troponin up trended to 238 but is now downtrending and at 128 at the latest value Echo without any abnormality CXR: No acute findings (2) Anxiety: - Patient is currently weaned off of Effexor, will hold off giving him this medication for now - Discussed case with psych liaison, patient given information about resources in regards to outpatient therapy if he wishes to participate (3) Hypertension: - Continue lisinopril 20 mg daily (4) Lumbar disc herniation with radiculopathy: With POC, patient does not have any indwelling hardware Chronic residual right foot demeanor sensation of soft touch otherwise no strength or sensory deficits No acute intervention at this time Diet: Heart healthy DVT prophylaxis: Lovenox Disposition: D/C home CODE STATUS: Full code Total Time Total Time Spent Total Time Spent (In Minutes): 30 Discharge Plan Discharge Items Patient Disposition: Home - Self-Care Reason For Visit: HR 250 ?VT VS 1:1 FLUTTER Discharge Diagnosis: Supraventricular tachycardia Activity: Per Instructions section Lifting: No more than 10 pounds Lifting Comment: no straining or lifting greater than 10 lb for 5 days Non-emergency contact: Primary Care Provider and Beauty Operator Apprentice Call non-emergency contact if: you have any medication questions and your symptoms worsen Follow-up/Referrals: Vasyl Heller MD [Physician] - Nik Taylor [Primary Care Provider] - 03/01/22 8:25 am Diet: Regular Addtl Attending Provider Instructions: You were seen in the hospital for evaluation of chest pain and palpitations. While you are here we had imaging and an EKG which had revealed an abnormally fast rate that we believed to be something called supraventricular tachycardia. Because of the rapidity of the rate, it was difficult to interpret exactly what the rhythm was. Because he had this rhythm, several modalities of treatment were attempted such as carotid massage, adenosine, and beta-blockers. Unfortunately none of these modalities seem to work and you had to be cardioverted (see a shock of electricity given to your heart to put you into sinus rhythm). After you were converted to sinus rhythm, our business and marketing teacher performed a electrophysiology study. Unfortunately these results were inconclusive as to the cause of your rhythm. Because the results are inclusive, it was recommended that you be sent with a home heart monitor which we will get you set up with. For now we will be sending you home with a medication called metoprolol which should help reduce the frequency of these abnormal heart rhythms. This will be sent to your pharmacy. For your anxiety, we do recommend that you find some outpatient talk therapy and resources were provided to you by our psychiatric liaison. Please discuss these options and treatments further with your primary care provider. It has been a pleasure to be part of your care and we wish you the best in both your health and recovery. Pending Studies at Discharge: No Stand-Alone Forms: [facility] Smoking Cessation Medications and DC Order Prescriptions: New metoprolol tartrate 25 mg Tablet 25 mg PO BID 30 Days Qty: 60 2RF Continued venlafaxine 25 mg tablet 6.25 mg PO DAILY Rx Instructions: IS TAKING 1/4 TAB DAILY. lisinopril 20 mg tablet 20 mg PO DAILY cholecalciferol (vitamin D3) [Vitamin D3] 50 mcg (2,000 unit) Tablet 50 mcg PO DAILY Discharge Orders: Discharge Order (Routine); Ordered 02/24/22 Ordered By: Rodrigo Langley/Other Patient Handouts: Supraventricular Tachycardia, Your Heart's Electrical System Admission Data Admit Date/Time: 02/21/22 15:25 Attending Provider: Lorraine Dumont Admit Provider: Ralph Baum Primary Care Provider: Nik Taylor Other Providers: Danilo Sanchez ; Ralph Baum ; Panda Cooper ; Dominik Rashid ; Harshil Jenkins ; Fede Donaldson ; Florentino Crooks Jr ; Ney Vásquez ; Isidra Guzman ; Josy Frederick ; Mainor Soto ; Vasyl Heller ; Jared Garrison ; Maria Alejandra Wynn ; Vale Quinones ; Johnny Vazquez ; Suleiman Rivero Henry C. ; Harshil Arteaga V. Other Interventions: Discharge Summary Assessment (RN) Last Done: 02/24/22 11:43
== END 2022-02-24 12:00 | disposition home or self-care (01) | DRG 309 ==
LOC: ED 14:29 → 1E 15:25 → SUATTDRO 15:25 → 1E 16:28 → 4W 22:07
DX: I10 Essential (primary) hypertension; I24.8 Other forms of acute ischemic heart disease; F41.9 Anxiety disorder, unspecified; I47.1 Supraventricular tachycardia; Z79.899 Other long term (current) drug therapy; Z20.822 Contact with and (suspected) exposure to COVID-19